=== PATIENT | female | born 1945 | race Caucasian/White ===

== ENCOUNTER 2018-03-29 14:04 | Emergency (ER) | payer MEDICARE, OTHER, SELFPAY ==
[2018-03-29 14:10] VITALS: BP 153/99; PULSE 93; RESP 20; TEMP 36.8; O2SAT 100; BMI 19.5
--- NOTE | 2018-03-29 14:38 | ED_ITS ---
HPI - Wound/Laceration <Nissa Blount PA-C - Last Filed: 03/29/18 21:41> General Chief Complaint: Wound/Laceration Stated Complaint: CUT RIGHT FOREARM Time Seen by Provider: 03/29/18 14:36 Source: patient Mode of arrival: ambulatory Limitations: no limitations History of Present Illness HPI narrative: This right-handed 9-year-old female was using a power amber at home when she states the standard caught on an uneven area and hit her right forearm. She states that it started bleeding right away. She denies any other injury. She states that she can move her wrist and fingers, tender with movement but not weak. She denies paresthesia. She states that it has been a number of years since last tetanus update. Denies any other complaints or changes to medical history since last visit Related Data Home Medications Medication Instructions Recorded Confirmed CALCIUM CITRATE/VITAMIN D3 1 tab PO QDAY #0 02/03/12 (Calcium Citrate - Vit D Caplet) lecithin #0 04/04/17 cholecalciferol (vitamin D3) #0 08/07/17 [Vitamin D3] Previous Rx's Medication Instructions Recorded potassium citrate 5 meq PO QDAY #90 tab 06/27/17 Allergies Allergy/AdvReac Type Severity Reaction Status Date / Time polymyxin B [From POLYTRIM] Allergy Severe EYE DROPS Unverified 02/11/18 12:02 - SWELLING ampicillin [AMPICILLIN] Allergy Intermediate RASH Unverified 02/11/18 12:02 Penicillins [PENICILLINS] Allergy Intermediate RASH Unverified 02/11/18 12:02 trimethoprim [From POLYTRIM] Allergy Unknown Unverified 02/11/18 12:02 Review of Systems <Nissa Blount PA-C - Last Filed: 03/29/18 21:41> Review of Systems All systems reviewed & are unremarkable except as noted in HPI and below Exam <Nissa Blount PA-C - Last Filed: 03/29/18 21:41> Narrative Exam Narrative: GENERAL APPEARANCE: Patient sitting comfortably, in no distress. LUNGS: Clear to auscultation bilaterally. HEART: Rate and rhythm regular without murmur, normal S1 and S2, no S3 or S4. DERMATOLOGIC: Right posterior mid forearm there is a 2.3 cm slightly curvilinear laceration appears to be 5-6 mm at deepest depth (irregular, deeper on radial side). I can visualize muscle but does not appear to penetrate. No visible foreign body. MUSCULOSKELETAL: Hand joints are nodular. Right hand finger strength is intact against resistance in all king with some tenderness. Full range of motion of the right wrist with tenderness at endpoints. NEUROVASCULAR: Right hand fingers are warm and pink with brisk cap refill, sensation grossly intact Initial Vital Signs Initial Vital Signs: Vital Signs Temperature 98.3 F 03/29/18 14:10 Pulse Rate 93 H 03/29/18 14:10 Respiratory Rate 20 03/29/18 14:10 Blood Pressure 153/99 H 03/29/18 14:10 Pulse Oximetry 100 03/29/18 14:10 <DO Juan Carlos Altamirano Last Filed: 03/30/18 07:24> Initial Vital Signs Initial Vital Signs: Vital Signs Temperature 98.3 F 03/29/18 14:10 Pulse Rate 93 H 03/29/18 14:10 Respiratory Rate 20 03/29/18 14:10 Blood Pressure 153/99 H 03/29/18 14:10 Pulse Oximetry 100 03/29/18 14:10 Procedures <ASHTYN Brennan Last Filed: 03/29/18 21:41> Joint Aspiration/Injection Laceration 1: Site: upper extremity Side (If applicable): right Size (cm): 2.3 Description: linear and irregular Depth: simple, single layer Local Anesthetic: lidocaine 1% and with epi Amount of anesthesia used (mL): 5 Pre-repair: wound explored, irrigated extensively and deep structures intact Skin layer closed with: nylon Size (cm): 4-0 Number of sutures: 5 Technique: simple, interrupted Course <ASHTYN Brennan Last Filed: 03/29/18 21:41> Orders Ordered: Discontinued Medications Diphtheria/Tetanus/Acell Pertussis (Adacel) 0.5 ml IM .ONCE ONE Stop: 03/29/18 14:42 Last Admin: 03/29/18 14:42 Dose: 0.5 ml Vital Signs - 8 hr 03/29/18 14:10 03/29/18 16:40 Temperature 98.3 F Pulse Rate 93 H 67 Respiratory Rate 20 16 Blood Pressure 153/99 H 154/89 H Pulse Oximetry 100 100 <DO Juan Carlos Altamirano Last Filed: 03/30/18 07:24> Orders Ordered: Discontinued Medications Diphtheria/Tetanus/Acell Pertussis (Adacel) 0.5 ml IM .ONCE ONE Stop: 03/29/18 14:42 Last Admin: 03/29/18 14:42 Dose: 0.5 ml Vital Signs - 8 hr 03/29/18 14:10 03/29/18 16:40 Temperature 98.3 F Pulse Rate 93 H 67 Respiratory Rate 20 16 Blood Pressure 153/99 H 154/89 H Pulse Oximetry 100 100 MDM - Wound/Laceration <Nissa Blount PA-C - Last Filed: 03/29/18 21:41> Imaging Data extremity: Radiologist's impression: [address] [address] XRay Report Signed Patient: Mary Beth Wong MR#: [id number] : 1945 Acct:[id number] Age/Sex: 72 / F Date of Service: 03/29/18 Loc: ED Accession Number: [id number] Procedure: XR forearm RT 2V Ordering Provider: Nissa Blount P.A-C PROCEDURE: XR FOREARM RT 2V INDICATIONS: deep laceration TECHNIQUE: 2 views of the forearm were acquired. COMPARISON: None. FINDINGS: Bones: No fractures or dislocations. No suspicious bony lesions. Soft tissues: No suspicious soft tissue calcifications or masses. IMPRESSION: No fracture or foreign body seen. Dictated by: Stephen Pineda M.D. on 03/29/2018 at 15:51 Approved by: Stephen Pineda M.D. on 03/29/2018 at 15:51 Discharge Plan Departure Patient Disposition: Home, Self-Care Clinical Impression: Forearm laceration Discharge Date/Time: 03/29/18 16:44 Interventions: ED Discharge Assessment Last Done: 03/29/18 16:40 Instructions: DI for Laceration Repair Activity Restrictions/Additional Instructions: Keep this wound clean and dry. It is okay to rinse and quickly pat dry. You can apply some Vaseline or antibiotic ointment to keep the sutures soft if you notice crusting. Return or see your PCP right away if signs of infection such as redness, drainage, or fever. They should be ready to removing in about 1 week. Prescriptions: No Action CALCIUM CITRATE/VITAMIN D3 (Calcium Citrate - Vit D Caplet) 1 tab PO QDAY Qty: 0 RF: 0 lecithin 518 MG capsule Qty: 0 RF: 0 potassium citrate 5 MEQ tablet extended release 5 meq PO QDAY Qty: 90 RF: 3 cholecalciferol (vitamin D3) [Vitamin D3] 2,000 UNIT capsule Qty: 0 RF: 0 Referrals: Esau Valdez MD [Primary Care Provider] - <Zeenat Monson DO - Last Filed: 03/30/18 07:24> Cosign ED Attending Cosignature Attestation: I was immediately available in the department for consultation. Documentation has been reviewed. I agree with assessment and plan.
[2018-03-29] MEDS: TET,DIPH,PERTUSS(ACELL),VAC/PF 0.5 ML SYRINGE IM (14:42)
--- NOTE | 2018-03-29 14:49 | DI.RAD.S_ITS ---
PROCEDURE: XR FOREARM RT 2V INDICATIONS: deep laceration TECHNIQUE: 2 views of the forearm were acquired. COMPARISON: None. FINDINGS: Bones: No fractures or dislocations. No suspicious bony lesions. Soft tissues: No suspicious soft tissue calcifications or masses. IMPRESSION: No fracture or foreign body seen. Dictated by: Stephen Pineda M.D. on 03/29/2018 at 15:51 Approved by: Stephen Pineda M.D. on 03/29/2018 at 15:51
--- NOTE | 2018-03-29 16:39 | PC.NURSE ---
placed telfa bandage on pt and wrapped with kerlix. bacitracin ointment on pt, gave pt some supplies to go home with . pt tolerated sutures procedure.
[2018-03-29 16:40] VITALS: BP 154/89; PULSE 67; RESP 16; O2SAT 100
== END 2018-03-29 16:44 | disposition home or self-care (01) ==
PROVIDERS: Emergency Provider Internal Medicine; Family Provider Family Medicine; PCP Family Medicine
DX: S51.811A Laceration without foreign body of right forearm, initial encounter (principal); W29.0XXA Contact with powered kitchen appliance, initial encounter
CPT/HCPCS: 12001; 12032; 73090; 90471; 99283; 90715

== ENCOUNTER → 2018-09-18 13:47 | Outpatient (CLI) | payer MEDICARE, OTHER, SELFPAY | PROVIDERS: Family Provider Family Medicine; PCP Student in an Organized Health Care Education/Training Program; Visit Provider Physician Assistant | DX: N30.91 Cystitis, unspecified with hematuria (principal) | CPT/HCPCS: 87086 ==

== ENCOUNTER → 2018-10-08 11:24 | Outpatient (CLI) | payer MEDICARE, OTHER, SELFPAY ==
--- NOTE | 2018-10-08 | DI.MG.S_ITS ---
BILATERAL DIGITAL SCREENING MAMMOGRAM 3D/2D WITH CAD: 10/08/2018 CLINICAL: Routine screening. Family history of breast cancer. Comparison is made to exams dated: 03/06/2017 mammogram, 12/01/2014 mammogram, and 06/21/2013 mammogram - [facility]. There are scattered fibroglandular elements in both breasts. Current study was also evaluated with a Computer Aided Detection (CAD) system. No significant masses, calcifications, or other findings are seen in either breast. There has been no significant interval change. IMPRESSION: NEGATIVE There is no mammographic evidence of malignancy. A 1 year screening mammogram is recommended. This exam was interpreted at Station ID: [id number]. NOTE: For mammograms, a report in lay terms will be sent to the patient. Approximately 15% of breast malignancies will not be visualized mammographically. In the management of a palpable breast mass, a negative mammogram must not discourage biopsy of a clinically suspicious lesion. Electronically Signed By: Gabriel eddy/connor:10/08/2018 21:04:36 letter sent: Normal Exam ACR BI-RADS Category 1: Negative 3341F
== END ==
PROVIDERS: Family Provider Family Medicine; PCP Student in an Organized Health Care Education/Training Program; Visit Provider Student in an Organized Health Care Education/Training Program
DX: Z12.31 Encounter for screening mammogram for malignant neoplasm of breast (principal); Z80.3 Family history of malignant neoplasm of breast
CPT/HCPCS: 77063; 77067

== ENCOUNTER → 2018-10-14 08:36 | Outpatient (CLI) | payer MEDICARE, OTHER, SELFPAY ==
[2018-10-14 09:32] LABS: Hematocrit 36.6 % (36-46); Hemoglobin 12.5 g/dL (12.0-16.0); Mean Corpuscular HGB Conc 34.1 % (30-36); Mean Corpuscular Hemoglobin 30.7 PG (26-34); Mean Corpuscular Volume 90.1 fL (80-100); Platelet Count 288 X10^3/uL (150-400); Red Blood Cell Count 4.06 X10^6/uL (4.0-5.2); Red Cell Distribution Width 14.1 % (11.6-14.8); White Blood Cell Count 3.5 X10^3/uL (4.5-11.0)
[2018-10-14 09:39] LABS: BUN Creatinine Ratio 26.3 (6-22); Blood Urea Nitrogen 21 mg/dL (7-17); Calcium 9.9 mg/dL (8.4-10.2); Carbon Dioxide 27 mmol/L (22-32); Chloride 106 mmol/L (98-107); Cholesterol 230 mg/dL (140-199); Estimated Glomerular Filt Rate > 60.0 mL/min (>60); Glucose 94 mg/dL (80-110); HDL Cholesterol 83 mg/dL (40-60); HEMOLYSIS < 15 (0-50); LDL Cholesterol Calculated 131 mg/dL (<100); Potassium 4.7 mmol/L (3.4-5.1); Sodium 143 mmol/L (137-145); Triglycerides 79 mg/dL (35-150)
[2018-10-14 09:55] LABS: Vitamin D 25 Hydroxy (D3) 62.2 ng/mL (30.0-100.0)
== END ==
PROVIDERS: PCP Student in an Organized Health Care Education/Training Program; Visit Provider Student in an Organized Health Care Education/Training Program
DX: E78.5 Hyperlipidemia, unspecified (principal); E78.2 Mixed hyperlipidemia; I10 Essential (primary) hypertension; E61.1 Iron deficiency; E55.9 Vitamin D deficiency, unspecified
CPT/HCPCS: 36415; 80048; 80061; 82306; 85027

== ENCOUNTER 2019-03-09 21:59 | Emergency (ER) | payer MEDICARE, OTHER, SELFPAY ==
[2019-03-09 22:42] VITALS: BP 153/87; PULSE 64; RESP 18; TEMP 36.7; O2SAT 100; BMI 19.2
[2019-03-09 23:24] LABS: Bacteria Urine Many (>30); Culture Indicated Urine Specimen Cultured; RBC Urine 1-5/HPF (0-5/HPF); Squamous Epithelial Cell Urine 0-1 /HPF (0-5/HPF); WBC Urine 10-30/HPF (0-5/HPF)
--- NOTE | 2019-03-10 00:21 | ED_ITS ---
HPI - Female Genitourinary General Chief complaint: Urogenital-Female Stated complaint: THINKS UTI Time Seen by Provider: 03/10/19 00:07 Source: patient Mode of arrival: ambulatory Limitations: no limitations History of Present Illness HPI Narrative: PATIENT IS A 73-YEAR-OLD female who presents with painful frequent urination. She started noticing some blood in her urine week however last night the symptoms got worse and definitely worse throughout the day. She has not had any fever or chills. She has some mild suprapubic pain and. Denies any fever nausea vomiting. he actually does have a prescription for Bactrim waiting for her she just was unable to pick it up. MD Complaint: UTI Related Data Home Medications Medication Instructions Recorded Confirmed CALCIUM CITRATE/VITAMIN D3 1 tab PO QDAY #0 02/03/12 01/24/19 (Calcium Citrate - Vit D Caplet) lecithin #0 04/04/17 01/24/19 cholecalciferol (vitamin D3) #0 08/07/17 01/24/19 [Vitamin D3] folic acid 400 mcg tablet 400 mcg PO DAILY 04/07/18 01/24/19 Previous Rx's Medication Instructions Recorded potassium citrate ER 5 mEq (540 5 meq PO QDAY #90 tab 10/28/18 mg) tablet,extended release Allergies Allergy/AdvReac Type Severity Reaction Status Date / Time polymyxin B [From POLYTRIM] Allergy Severe EYE DROPS Verified 03/09/19 22:45 - SWELLING ampicillin [AMPICILLIN] Allergy Intermediate RASH Verified 03/09/19 22:45 Penicillins [PENICILLINS] Allergy Intermediate RASH Verified 03/09/19 22:45 trimethoprim [From POLYTRIM] Allergy Unknown Verified 03/09/19 22:45 Review of Systems Review of Systems GENERAL: Denies chills,fever HEENT: Denies throat pain RESPIRATORY: Denies dyspnea, cough, wheezing CARDIOVASCULAR: Denies chest pain, palpitations GASTROINTESTINAL: Denies nausea, vomiting : See HPI MUSCULOSKELETAL: Denies extremity pain, injury SKIN: No rash, no laceration, no pruritus NEUROLOGIC: Denies weakness, dizziness, headache, numbness 8 point review of systems is negative except for those stated above and HPI [facility] Medical History Chronic cough (Chronic 2012) Shoulder pain (Chronic ~2003) Urinary incontinence (Chronic ~2009) Actinic keratosis (Resolved 1989) Anemia (Resolved 1963) Chicken pox (Resolved 1957) Genital warts (Resolved 1969) Hematuria (Resolved 1969) History of heavy periods (Resolved 1963) History of painful menstruation (Resolved 1963) Measles (Resolved 1954) Mumps (Resolved 1958) Nephrolithiasis (Resolved ~2011) Plantar warts (Resolved ~1984) Surgical History Anesthesia (Chronic) History of bladder suspension procedure (Resolved ~2002) History of facelift (Resolved ~2008) History of lithotripsy (Resolved ~2010) History of tonsillectomy (Resolved 1951) Status post tubal ligation (Resolved ~1978) Family History (Updated 05/15/18 @ 14:06 by Sun Geronimo) Brother Age: 76 Hypertension High cholesterol Father Stroke Grandfather Heart disease Grandmother Anemia Mother Stroke Grandfather Heart disease Grandmother Stomach cancer Social History marital status: household members: spouse and family lives independently: Yes caregiver/support person: No housing: house pets and animals: Yes education level: college occupational status: previously employed current occupational exposures/hazards: No 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 Smoking Status: Never smoker Family History Brother Age: 76 Hypertension High cholesterol Father Stroke Grandfather Heart disease Grandmother Anemia Mother Stroke Grandfather Heart disease Grandmother Stomach cancer Social History marital status: household members: spouse and family lives independently: Yes caregiver/support person: No housing: house pets and animals: Yes education level: college occupational status: previously employed current occupational exposures/hazards: No 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 HEENT: Head atraumatic,EOMI, CARDIOVASCULAR: Regular rate and rhythm without murmurs, rubs or gallops. RESPIRATORY: Breath sounds equal bilaterally, no wheezes rales or rhonchi. ABDOMEN: Soft, mild suprapubic : No CVA tenderness EXTREMITIES: Normal range of motion, no clubbing or edema. Neurovascularly in tact NEUROLOGICAL: Alert and oriented x4.Normal gait and speech. SKIN: Warm, dry, no laceration, no petechiae, no rashes or lesions. Course Orders Ordered: ED Orders 03/09/19 22:55 Urine Culture Stat Urine Microscopic Stat Discontinued Medications Trimethoprim/Sulfamethoxazole (Bactrim Ds Prepack) 1 bottle MISC SEEINSTR ONE Stop: 03/10/19 00:08 Last Admin: 03/10/19 00:27 Dose: 1 bottle Vital Signs - 8 hr 03/09/19 22:42 03/10/19 00:35 Temperature 98.0 F 99.2 F Pulse Rate 64 67 Respiratory Rate 18 18 Blood Pressure 153/87 H 144/72 H Pulse Oximetry 100 99 MDM - Female Genitourinary Lab Data Attestation: I reviewed the patient's lab results. Lab Results 03/09/19 Range/Units 22:55 Urine RBC 1-5/hpf (0-5/HPF) Urine WBC 10-30/hpf H (0-5/HPF) Ur Squamous Epith Cells 0-1 /hpf (0-5/HPF) Urine Bacteria Many (>30) H (None) Ur Culture Indicated? Specimen cultured Urine Dip Bedside Urine Glucose Negative Bedside Urine Bilirubin - Negative Bedside Urine Ketone - Negative Urine Specific Amelia 1.020 Bedside Urine Occult Blood ++ Bedside Urine pH 7.0 Bedside Urine Protein + 30 Bedside Urine Urobilinogen - Negative Bedside Urine Nitrite + Positive Bedside Urine Leukocytes +++ 500 Esterase MDM Narrative Medical decision making narrative: sHe is afebrile not tachycardic does not a ppear septic. She is given a prepack of Bactrim. Discharge Plan Departure Patient Disposition: Home Clinical Impression: Urinary tract infection Qualifiers: Urinary tract infection type: acute cystitis Hematuria presence: with hematuria Qualified Code(s): N30.01 - Acute cystitis with hematuria Discharge Date/Time: 03/10/19 00:36 Interventions: ED Discharge Assessment Last Done: 03/10/19 00:35 Instructions: DI for Urinary Tract Infection (UTI) Activity Restrictions/Additional Instructions: *You have been diagnosed with UTI *What to do: Increase fluid intake *Continue to take medications as directed Pickup prescription for Bactrim 1 tablet twice daily for 7 days I recommend stopping potassium citrate until antibiotics are done *Follow up with your primary care provider in 2-3 days *Return to ER if you should have a fever, increasing pain, inability to tolerate fluids or any new, worsening or concerning symptoms Prescriptions: No Action CALCIUM CITRATE/VITAMIN D3 (Calcium Citrate - Vit D Caplet) 1 tab PO QDAY Qty: 0 RF: 0 lecithin 518 MG capsule Qty: 0 RF: 0 cholecalciferol (vitamin D3) [Vitamin D3] 2,000 UNIT capsule Qty: 0 RF: 0 potassium citrate 5 mEq (540 mg) tablet extended release 5 meq PO QDAY Qty: 90 RF: 1 folic acid 400 mcg tablet 400 mcg PO DAILY RF: 0 Referrals: Amanuel Olmstead MD [Primary Care Provider] -
[2019-03-10] MEDS: TRIMETH/SULFA 160/800 PREPACK 1 BOTTLE MISC (00:27)
[2019-03-10 00:35] VITALS: BP 144/72; PULSE 67; RESP 18; TEMP 37.3; O2SAT 99
== END 2019-03-10 00:36 | disposition home or self-care (01) ==
PROVIDERS: Emergency Provider Emergency Medicine; Family Provider Family Medicine; PCP Student in an Organized Health Care Education/Training Program
DX: N30.01 Acute cystitis with hematuria (principal)
CPT/HCPCS: 81003; 81015; 87077; 87086; 87186; 99282; 99283

== ENCOUNTER → 2020-01-15 19:06 | Outpatient (CLI) | payer MEDICARE, OTHER, SELFPAY ==
[2020-01-15 20:22] LABS: Influenza A - CEPHEID Flu A NEGATIVE (NEGATIVE); Influenza B - CEPHEID Flu B NEGATIVE (NEGATIVE)
[2020-01-20 08:58] LABS: COVID19 Sendout DETECTED
== END ==
PROVIDERS: PCP Student in an Organized Health Care Education/Training Program; Visit Provider Nurse Practitioner
DX: B97.29 Other coronavirus as the cause of diseases classified elsewhere (principal); J22 Unspecified acute lower respiratory infection
CPT/HCPCS: 87502; 87635

== ENCOUNTER → 2020-02-17 13:29 | Outpatient (CLI) | payer MEDICARE, OTHER, SELFPAY ==
[2020-02-19 11:11] LABS: COVID19 Sendout Not Detected (Not Detected)
== END ==
PROVIDERS: PCP Student in an Organized Health Care Education/Training Program; Visit Provider Registered Nurse
DX: Z11.9 Encounter for screening for infectious and parasitic diseases, unspecified (principal)
CPT/HCPCS: 87635

== ENCOUNTER → 2020-04-07 13:17 | Outpatient (CLI) | payer MEDICARE, OTHER, SELFPAY ==
[2020-04-07 14:27] LABS: Add Manual Diff / Slide Review NO; Basophils Absolute Auto 0 /uL (0-100); Basophils Percent Auto 0.1 % (0-2); Eosinophils Absolute Auto 200 /uL (0-450); Hematocrit 34.8 % (36-46); Lymphocytes Absolute Auto 1400 /uL (1100-4500); Lymphocytes Percent Auto 35.1 % (25-40); Mean Corpuscular HGB Conc 34.6 % (30-36); Mean Corpuscular Hemoglobin 31.2 PG (26-34); Monocytes Absolute Auto 300 /uL (0-900); Monocytes Percent Auto 7.1 % (3-14); Neutrophils Absolute Auto 2200 /uL (1500-7000); Neutrophils Percent Auto 53.7 % (50-75); Platelet Count 259 X10^3/uL (150-400); Red Blood Cell Count 3.87 X10^6/uL (4.0-5.2); Red Cell Distribution Width 14.7 % (11.6-14.8); White Blood Cell Count 4.1 X10^3/uL (4.5-11.0)
[2020-04-07 14:28] LABS: Alanine Aminotransferase 17 IU/L (<35); Albumin 4.3 g/dL (3.5-5.0); Albumin Globulin Ratio 1.4 (1.0-2.8); Alkaline Phosphatase 45 U/L (38-126); Aspartate Aminotransferase 30 IU/L (14-36); Bilirubin Total 1.1 mg/dL (0.2-1.3); Blood Urea Nitrogen 17 mg/dL (7-17); Calcium 10.3 mg/dL (8.4-10.2); Carbon Dioxide 26 mmol/L (22-32); Chloride 105 mmol/L (98-107); Estimated Glomerular Filt Rate > 60.0 mL/min (>60); Glucose 98 mg/dL (80-110); HEMOLYSIS < 15 (0-50); Potassium 4.6 mmol/L (3.4-5.1); Sodium 138 mmol/L (137-145); Total Protein 7.3 g/dL (6.3-8.2)
[2020-04-07 15:10] LABS: Thyroid Stimulating Hormone 3.32 uIU/mL (0.47-4.68)
== END ==
PROVIDERS: PCP Student in an Organized Health Care Education/Training Program; Referring Provider Internal Medicine Cardiovascular Disease; Visit Provider Internal Medicine Cardiovascular Disease
DX: I11.9 Hypertensive heart disease without heart failure (principal); R00.2 Palpitations
CPT/HCPCS: 36415; 80053; 83735; 84443; 85025

== ENCOUNTER → 2020-06-22 07:54 | Outpatient (CLI) | payer MEDICARE, OTHER, SELFPAY ==
--- NOTE | 2020-06-22 | DI.ECHO.S_ITS ---
[facility] +---------+ : : [address] [place] : : : : [id number] : : : : Phone: [phone]+ Echocardiogram Report + + :Name: ALTAGRACIA GOMEZ Study Date: 06/22/2020 Height: 62 in : :[facility] Weight: 103 lb : : Gender: Female BSA: 1.4 m2 : :: 1945 Age: 75 yrs BP: 133/89 mmHg: :Reason For Study: Palpitations : :Ordering Physician: Laverne : :Marcia Travis Performed By: Rosa Hernandez : :Referring: LAVERNE TRAVIS : + + Interpretation Summary The left ventricle is normal in size and wall thickness. The ejection fraction is estimated to be 60-65%. There has been no significant change in LVEF since the previous exam. The right ventricle is normal in size and function. There is mild aortic regurgitation. Compared to the prior echo study, there has been no change in the severity of aortic regurgitation. There is moderate tricuspid regurgitation. Compared to the prior echo exam, there has been no significant change in TR severity. The right ventricular systolic pressure is estimated to be at least 24 mmHg based on an estimated right atrial pressure of 3 mm Hg. The ascending aorta is mildly enlarged. 3.8 cm in diameter. Previously it was 3.7 cm. There is mild luminal irregularity and echogenicity in the abdominal aorta, suggestive of aortic atherosclerotic disease. Procedure: A two-dimensional transthoracic echocardiogram with color flow and Doppler was performed. The study quality was technically adequate. Comparison is made with the echocardiogram of 08/01/2017. The patient was in sinus rhythm with heart rates between 60-75 bpm during the exam. Left Ventricle: The left ventricle is normal in size and wall thickness. There is no thrombus. The ejection fraction is estimated to be 60-65%. There has been no significant change since the previous exam. There are no focal wall motion abnormalities. MV E/A: 1.1 Med Peak E' Levar: 4.5 cm/sec E/E' med: 13.8. Right Ventricle: The right ventricle is normal in size and function. Atria: The left atrial size is normal. Both atria have mildly decreased in size since the prior echo exam. Right atrial size is normal. There is no Doppler evidence for an interatrial shunt. Mitral Valve: The mitral valve is normal in structure and function. There is trace mitral regurgitation. Aortic Valve: The aortic valve is trileaflet. There is no aortic valve stenosis. There is mild aortic regurgitation. Compared to the prior echo study, there has been no change in the severity of aortic regurgitation. Tricuspid Valve: Tricuspid leaflets are thickened. The right ventricular systolic pressure is estimated to be at least 24 mmHg based on an estimated right atrial pressure of 3 mm Hg. There is moderate tricuspid regurgitation. Compared to the prior echo exam, there has been no change in TR severity. Pulmonic Valve: The pulmonic valve leaflets are thin and pliable; valve motion is normal. There is trace pulmonic regurgitation. Great Vessels: The aortic root is normal size. The ascending aorta is mildly enlarged. There is mild luminal irregularity and echogenicity in the abdominal aorta, suggestive of aortic atherosclerotic disease. The IVC is of normal diameter and collapses greater than 50% with a sniff. This suggests a low right atrial pressure of 3 mm Hg. Pericardium/ Pleura There is no pericardial effusion. There is no pleural effusion. MMode/2D Measurements & Calculations LVIDd: 3.9 cm LVOT diam: 1.8 cm LVIDs: 2.6 cm Ao root diam: 3.4 cm FS: 34.1 % asc Aorta Diam: 3.8 cm EPSS: 0.29 cm Ao Arch Diam (Prox Trans): 2.3 cm IVSd: 0.84 cm LVPWd: 0.63 cm LV lopez. diameter/BSA (cm/m^2): 2.7 LV sys. diameter/BSA (cm/m^2): 1.8 LA A2 area: 14.0 cm2 RA long axis: 5.0 cm LA A4 area: 15.1 cm2 RA area: 13.9 cm2 LA length (vol): 4.8 cm RA vol: 32.9 ml LA vol: 37.7 ml RA : 22.8 ml/m2 LA vol index: 26.2 ml/m2 IVC diam: 1.4 cm RVD1 (basal): 3.1 cm TAPSE: 2.0 cm Doppler Measurements & Calculations Ao V2 max: 152.5 cm/sec LVOT Max Levar: 93.9 cm/sec Ao V2 mean: 94.3 cm/sec LV V1 max P.5 mmHg Ao max P.3 mmHg LV V1 VTI: 18.0 cm Ao mean P.3 mmHg BRIGIDA(I,D): 1.4 cm2 Ao V2 VTI: 30.9 cm BRIGIDA(V,D): 1.5 cm2 sev ratio: 0.58 BRIGIDA indexed to BSA (cm^2/m^2): 0.98 MV E max levar: 62.5 cm/sec TR max levar: 228.2 cm/sec MV A max levar: 56.7 cm/sec TR max P.8 mmHg MV E/A: 1.1 PA V2 max: 100.2 cm/sec Med Peak E' Levar: 4.5 cm/sec PA V2 mean: 65.9 cm/sec E/E' med: 13.8 PA mean P.0 mmHg Lat Peak E' Levar: 8.3 cm/sec PA pr(Accel): 24.2 mmHg E/E' lat: 7.6 E/e' average: 10.7 MV dec time: 0.19 sec SV(LVOT): 43.7 ml Reading Physician:06:05 PM
== END ==
PROVIDERS: PCP Family Medicine; Referring Provider Family Medicine; Visit Provider Internal Medicine Cardiovascular Disease
DX: I08.2 Rheumatic disorders of both aortic and tricuspid valves (principal); I77.89 Other specified disorders of arteries and arterioles; R00.2 Palpitations; R42 Dizziness and giddiness
CPT/HCPCS: 93306

== ENCOUNTER → 2020-08-10 08:18 | Outpatient (CLI) | payer MEDICARE, OTHER, SELFPAY ==
[2020-08-10 10:22] LABS: Cholesterol 229 mg/dL (140-199); HDL Cholesterol 99 mg/dL (40-60); LDL Cholesterol Calculated 115 mg/dL (<100); Triglycerides 73 mg/dL (35-150)
== END ==
PROVIDERS: PCP Family Medicine; Referring Provider Internal Medicine Cardiovascular Disease; Visit Provider Internal Medicine Cardiovascular Disease
DX: I77.810 Thoracic aortic ectasia (principal); I11.9 Hypertensive heart disease without heart failure
CPT/HCPCS: 36415; 80061

== ENCOUNTER → 2020-11-14 15:57 | Outpatient (CLI) | payer MEDICARE, OTHER, SELFPAY ==
--- NOTE | 2020-11-14 15:59 | DI.MG.S_ITS ---
BILATERAL DIGITAL SCREENING MAMMOGRAM 3D/2D WITH CAD: 11/14/2020 CLINICAL: Routine screening. Family history of breast cancer. Comparison is made to exams dated: 10/08/2018 mammogram, 03/06/2017 mammogram, and 12/01/2014 mammogram - [facility]. There are scattered fibroglandular elements in both breasts. Current study was also evaluated with a Computer Aided Detection (CAD) system. No significant masses, calcifications, or other findings are seen in either breast. There has been no significant interval change. IMPRESSION: NEGATIVE There is no mammographic evidence of malignancy. A 1 year screening mammogram is recommended. This exam was interpreted at Station ID: [id number]. NOTE: For mammograms, a report in lay terms will be sent to the patient. Approximately 15% of breast malignancies will not be visualized mammographically. In the management of a palpable breast mass, a negative mammogram must not discourage biopsy of a clinically suspicious lesion. Electronically Signed By: Toño salomon/connor:11/14/2020 16:48:25 letter sent: Normal Exam ACR BI-RADS Category 1: Negative [id number]
== END ==
PROVIDERS: PCP Family Medicine; Referring Provider Family Medicine; Visit Provider Family Medicine
DX: Z12.31 Encounter for screening mammogram for malignant neoplasm of breast (principal); Z80.3 Family history of malignant neoplasm of breast
CPT/HCPCS: 77063; 77067

== ENCOUNTER → 2020-11-22 12:50 | Outpatient (CLI) | payer MEDICARE, OTHER, SELFPAY ==
--- NOTE | 2020-11-22 12:52 | DI.RAD.S_ITS ---
PROCEDURE: XR CHEST 2V INDICATIONS: rt sided chest pain TECHNIQUE: 2 views of the chest were acquired. COMPARISON: [facility], CHEST 1 VIEW, 06/30/2017, 21:41. [facility], CHEST 2 VIEW, 11/10/2013, 17:01. FINDINGS: Surgical changes and devices: None. Lungs and pleura: Lungs are clear. No pleural effusions or pneumothorax. Mediastinum: Mediastinal contours are normal. Heart size is normal. Bones and chest wall: No suspicious bony abnormalities. Soft tissues appear unremarkable. IMPRESSION: Normal for age considering relatively light film technique on the lateral view, source of current right-sided chest pain symptoms is not seen. Dictated by: Stephen Pineda M.D. on 11/22/2020 at 14:30 Approved by: Stephen Pineda M.D. on 11/22/2020 at 14:31
[2020-11-22 13:09] LABS: Add Manual Diff / Slide Review NO; Basophils Absolute Auto 0 /uL (0-100); Basophils Percent Auto 0.3 % (0-2); Eosinophils Absolute Auto 400 /uL (0-450); Eosinophils Percent Auto 8.6 % (2-4); Hematocrit 36.9 % (36-46); Hemoglobin 12.2 g/dL (12.0-16.0); Lymphocytes Absolute Auto 1400 /uL (1100-4500); Lymphocytes Percent Auto 27.9 % (25-40); Mean Corpuscular HGB Conc 33.2 % (30-36); Mean Corpuscular Hemoglobin 30.1 PG (26-34); Mean Corpuscular Volume 90.8 fL (80-100); Monocytes Absolute Auto 300 /uL (0-900); Monocytes Percent Auto 6.8 % (3-14); Neutrophils Absolute Auto 2900 /uL (1500-7000); Neutrophils Percent Auto 56.4 % (50-75); Platelet Count 273 X10^3/uL (150-400); Red Blood Cell Count 4.06 X10^6/uL (4.0-5.2); Red Cell Distribution Width 13.9 % (11.6-14.8); White Blood Cell Count 5.1 X10^3/uL (4.5-11.0)
[2020-11-22 13:13] LABS: INR 0.9 (0.9-1.3); Prothrombin Time 10.9 SECONDS (10.1-12.7)
[2020-11-22 13:16] LABS: D Dimer < 200 ng/mL (<230)
[2020-11-22 13:18] LABS: Alanine Aminotransferase 16 IU/L (<35); Albumin 4.3 g/dL (3.5-5.0); Albumin Globulin Ratio 1.4 (1.0-2.8); Alkaline Phosphatase 52 U/L (38-126); Aspartate Aminotransferase 26 IU/L (14-36); BUN Creatinine Ratio 21.3 (6-22); Bilirubin Total 0.9 mg/dL (0.2-1.3); Blood Urea Nitrogen 16 mg/dL (7-17); Calcium 9.5 mg/dL (8.4-10.2); Carbon Dioxide 28 mmol/L (22-32); Chloride 106 mmol/L (98-107); Cholesterol 247 mg/dL (140-199); Creatine Kinase 59 U/L (30-135); Estimated Glomerular Filt Rate > 60.0 mL/min (>60); Glucose 102 mg/dL (80-110); HDL Cholesterol 103 mg/dL (40-60); HEMOLYSIS < 15 (0-50); LDL Cholesterol Calculated 122 mg/dL (<100); Sodium 139 mmol/L (137-145); Total Protein 7.3 g/dL (6.3-8.2); Triglycerides 108 mg/dL (35-150)
[2020-11-22 13:30] LABS: Troponin I < 0.012 ng/mL (0.01-0.034)
[2020-11-22 13:53] LABS: Ferritin 28 ng/mL (11-264)
== END ==
PROVIDERS: PCP Family Medicine; Referring Provider Family Medicine; Visit Provider Family Medicine
DX: R07.81 Pleurodynia (principal); R07.9 Chest pain, unspecified; D64.9 Anemia, unspecified; E78.5 Hyperlipidemia, unspecified
CPT/HCPCS: 36415; 71046; 80053; 80061; 82550; 82728; 84484; 85025; 85379; 85610

== ENCOUNTER 2020-11-22 14:36 | Observation (INO) | payer MEDICARE, OTHER, SELFPAY ==
[2020-11-22] VITALS (9 sets, daily range): BP systolic 110–185; BP diastolic 69–96; PULSE 68–87; RESP 16–51; TEMP 36.9–37.2; O2SAT 96–100; BMI 21.9
--- NOTE | 2020-11-22 14:44 | DI.CT.S_ITS ---
PROCEDURE: CT ANGIO CHEST PE PROTOCOL INDICATIONS: R upper chest pain TECHNIQUE: After the administration of intravenous contrast, 2 mm thick sections acquired from the pulmonary apices to the posterior costophrenic angles. 3-dimensional maximum intensity projection (MIP) coronal and sagittal reformats were then acquired through the thorax. For radiation dose reduction, the following was used: automated exposure control, adjustment of mA and/or kV according to patient size. COMPARISON: None. FINDINGS: Image quality: Excellent. Pulmonary arteries: Pulmonary arteries are normal in size, and demonstrate no intraluminal filling defects to suggest central pulmonary embolism. Lungs and pleura: Lungs are clear except for a small degree of what appears to be linear atelectasis at the anterior border of the major fissure, right anterolateral lower lobe. This is adjacent to a thin anterior pneumothorax, measuring only 1.3-1.5 cm in maximal thickness that is at the most anterior border of the low hemithorax on the right and does not extend towards the right lung apex. No blebs, or new masses are seen.. No pleural effusions or pneumothorax. Central and peripheral airways are patent. Mediastinum: Heart size is normal, without pericardial effusion. No mediastinal or hilar adenopathy. Thoracic aorta is normal in caliber and enhancement. Esophagus is normal in caliber, without hiatal hernia. Bones and chest wall: No suspicious bony lesions. Ribs and thoracic spine appear intact throughout. Thyroid gland appears normal where well seen.. No axillary or supraclavicular adenopathy. Abdomen: Visualized upper abdominal solid organs appear normal in the early arterial phase of enhancement. IMPRESSION: Spontaneous small right anterior pneumothorax with adjacent atelectasis is present seen only at the right lower lung, measuring only 1.5 cm in maximal thickness without significant mass effect. Etiology is uncertain. No trauma reported by the emergency room physician. No pulmonary embolus present. These findings were immediately called to and discussed with Dr. Silva of the emergency room staff caring for the patient. Dictated by: Stephen Pineda M.D. on 11/22/2020 at 15:50 Approved by: Stephen Pineda M.D. on 11/22/2020 at 15:56
--- NOTE | 2020-11-22 14:50 | ED.GENADULT ---
HPI - General Adult General Chief complaint: Chest Pain Stated complaint: right upper chest discomfort x1 day Time Seen by Provider: 11/22/20 14:41 Source: patient Mode of arrival: Ambulatory Limitations: no limitations History of Present Illness HPI narrative: Patient is a 75-year-old female here for evaluation of right upper chest discomfort. Patient states that the symptoms started this morning when she woke up. It was a sharp and achy discomfort. She was also belching this morning was did not change any of her symptoms. She thought that potentially was worse by touching it although it is definitely worse by taking a deep breath. She went to her primary doctor earlier today who joseph labs which were unremarkable. She states that since she was sent home from her primary doctor's office the symptoms seem to get worse. She did take 2 extra-strength Tylenol prior to arrival and her symptoms seemed to have improved somewhat. Related Data Home Medications Medication Instructions Recorded Confirmed CALCIUM CITRATE/VITAMIN D3 1 tab PO QDAY #0 02/03/12 11/22/20 (Calcium Citrate - Vit D Caplet) lecithin #0 04/04/17 11/22/20 cholecalciferol (vitamin D3) #0 08/07/17 11/22/20 [Vitamin D3] folic acid 400 mcg tablet 400 mcg PO DAILY 04/07/18 11/22/20 Previous Rx's Medication Instructions Recorded potassium citrate 5 mEq (540 mg) See Rx Instructions .ROUTE 05/05/20 tablet,extended release .COMPLEX #90 tab Allergies Allergy/AdvReac Type Severity Reaction Status Date / Time polymyxin B [From POLYTRIM] Allergy Severe EYE DROPS Verified 11/22/20 12:18 - SWELLING ampicillin [AMPICILLIN] Allergy Intermediate RASH Verified 11/22/20 12:18 Penicillins [PENICILLINS] Allergy Intermediate RASH Verified 11/22/20 12:18 trimethoprim [From POLYTRIM] Allergy Unknown Verified 11/22/20 12:18 Bactrim (trimethoprim) AdvReac Intermediate red,raised Uncoded 11/22/20 12:18 , very itchy rash Review of Systems Constitutional Constitutional: Denies fever(s) Cardiovascular Cardiovascular: Reports chest pain Respiratory Respiratory: Reports pain on inspiration Gastrointestinal Gastrointestinal: Denies abdominal pain, Denies nausea and Denies vomiting Genitourinary Genitourinary: Denies dysuria Genitourinary: Denies dysuria Musculoskeletal Musculoskeletal: Denies arthralgias and Denies myalgias Integumentary/Breasts Skin/Breast: Denies lesions and Denies rash Neurologic Neurologic: Denies behavioral changes Psychiatric Psychiatric: Denies behavioral changes Hematologic/Lymphatic Hematologic/Lymphatic: Denies easy bleeding and Denies easy bruising Patient History Medical History Actinic keratosis (1989) Anemia (1963) Chicken pox (1957) Chronic cough (2012) Genital warts (1969) Hematuria (1969) History of heavy periods (1963) History of painful menstruation (1963) Measles (1954) Mumps (1958) Nephrolithiasis (~2011) Plantar warts (~1984) Shoulder pain (~2003) Urinary incontinence (~2009) Surgical History Anesthesia History of bladder suspension procedure (~2002) History of facelift (~2008) History of lithotripsy (~2010) History of tonsillectomy (1951) Status post tubal ligation (~1978) Family History Brother Age: 78 Hypertension High cholesterol Father Stroke Grandfather Heart disease Grandmother Anemia Mother Stroke Grandfather Heart disease Grandmother Stomach cancer Social History marital status: household members: spouse and family lives independently: Yes caregiver/support person: No housing: house pets and animals: Yes education level: college occupational status: previously employed current occupational exposures/hazards: No Previous occupational history: instructor correspondence school Smoking Status: Never smoker alcohol intake: current (1-2 A DAY ) substance use type: marijuana Smoking Status: Never smoker alcohol intake frequency: a few times a week Substance Use Type: does not use Exam Initial Vital Signs Initial Vital Signs: Vital Signs Pulse Rate 84 11/22/20 14:44 Respiratory Rate 20 11/22/20 14:44 Blood Pressure 185/96 H 11/22/20 14:44 Pulse Oximetry 96 11/22/20 14:44 Const General: cooperative, comfortable and well developed Limitations: mental status not altered HENMT Head: normal to inspection and normocephalic Chest Chest: No crepitus and No tenderness Resp Effort & Inspection: normal respiratory effort Auscultation: clear to auscultation bilaterally Cardio Rate: regular rate Rhythm: regular rhythm Skin Lesions: no lesions Rashes: no rashes Neuro General: patient alert and patient awake Cognition: normal cognition Speech: speech normal Extrem General: capillary refill normal Psych Appearance: grossly normal and well kempt Course Orders Ordered: ED Orders 11/22/20 14:43 Troponin & CK Cardiac Panel Stat EKG-12 Lead Stat 11/22/20 14:44 CT angio chest PE protocol Stat 11/22/20 17:13 Consult to General Surgery Stat 11/22/20 17:20 COVID19 Stat Acetaminophen (Acetaminophen 325 Mg Tablet) 650 mg PO Q6HR PRN PRN Reason: Fever/Mild Pain (1-3) Calcium Carbonate (Calcium Carbonate 500 Mg Tab) 1,000 mg PO Q4HR PRN PRN Reason: Dyspepsia Ibuprofen (Ibuprofen 600 Mg Tablet) 600 mg PO Q6HR PRN PRN Reason: Fever/Mild Pain (1-3) Naloxone HCl (Naloxone 0.4 Mg/Ml Vial) 0.2 mg IV Q2MIN PRN PRN Reason: Opiate Reversal Vital Signs Vital signs: Vital Signs - 8 hr 11/22/20 14:44 11/22/20 14:46 11/22/20 15:00 Pulse Rate 84 87 74 Respiratory Rate 20 23 51 H Blood Pressure 185/96 H 153/80 H Pulse Oximetry 96 100 100 11/22/20 16:23 11/22/20 16:24 Pulse Rate 83 74 Respiratory Rate 16 Blood Pressure 140/76 140/76 Pulse Oximetry 99 98 Medical Decision Making Lab Data Lab results reviewed: Yes I reviewed the patient's lab results. Labs: Lab Results 11/22/20 Range/Units 14:43 Total Creatine Kinase 71 (30-135) U/L CK-MB (CK-2) TNP CK-MB (CK-2) Rel Index TNP Troponin I < 0.012 (0.01-0.034) ng/mL Imaging Data CT scan - chest: Radiologist's Impression: [address] [id number] Scan ReportSigned Patient: Mary Beth Wong AMR#: [id number]: 1945cct:[id number]/Sex: 75 / FDate of Service: 11/22/20Loc: EDAccession Number: [id number] Procedure: CT angio chest PE protocol Ordering Provider: Danis Silva D.O. PROCEDURE: CT ANGIO CHEST PE PROTOCOL INDICATIONS: R upper chest pain TECHNIQUE: After the administration of intravenous contrast, 2 mm thick sections acquired from the pulmonary apices to the posterior costophrenic angles. 3-dimensional maximum intensity projection (MIP) coronal and sagittal reformats were then acquired through the thorax. For radiation dose reduction, the following was used: automated exposure control, adjustment of mA and/or kV according to patient size. COMPARISON: None. FINDINGS: Image quality: Excellent. Pulmonary arteries: Pulmonary arteries are normal in size, and demonstrate no intraluminal filling defects to suggest central pulmonary embolism. Lungs and pleura: Lungs are clear except for a small degree of what appears to be linear atelectasis at the anterior border of the major fissure, right anterolateral lower lobe. This is adjacent to a thin anterior pneumothorax, measuring only 1.3-1.5 cm in maximal thickness that is at the most anterior border of the low hemithorax on the right and does not extend towards the right lung apex. No blebs, or new masses are seen.. No pleural effusions or pneumothorax. Central and peripheral airways are patent. Mediastinum: Heart size is normal, without pericardial effusion. No mediastinal or hilar adenopathy. Thoracic aorta is normal in caliber and enhancement. Esophagus is normal in caliber, without hiatal hernia. Bones and chest wall: No suspicious bony lesions. Ribs and thoracic spine appear intact throughout. Thyroid gland appears normal where well seen.. No axillary or supraclavicular adenopathy. Abdomen: Visualized upper abdominal solid organs appear normal in the early arterial phase of enhancement. IMPRESSION: Spontaneous small right anterior pneumothorax with adjacent atelectasis is present seen only at the right lower lung, measuring only 1.5 cm in maximal thickness without significant mass effect. Etiology is uncertain. No trauma reported by the emergency room physician. No pulmonary embolus present. These findings were immediately called to and discussed with Dr. Silva of the emergency room staff caring for the patient. Dictated by: Stephen Pineda M.D. on 11/22/2020 at 15:50 Approved by: Stephen Pineda M.D. on 11/22/2020 at 15:56 ECG Data Attestation: I personally reviewed and interpreted this ECG as follows: Prior ECG tracings: not available for review Interpretation: Sinus rhythm Ventricular rate 82 Normal axis Normal QRS Normal QTC No ST T wave changes MDM Narrative Medical decision making narrative: Patient does have a right-sided pneumothorax. It is less than 20% per my evaluation. She is not hypoxic. Not tachypneic. He was not seen on a chest x-ray earlier today. Discussed the case with Dr. Serrano on-call for General surgery. Will hold on a chest tube for now however will admit for further evaluation and repeat imaging in the morning. A consult was placed for General surgery. He asked the patient be admitted to the medicine service. I then discussed the case with Dr. Dixon who is patient's primary doctor. Will admit for further evaluation. I did discuss this with the patient and her at bedside. They expressed understanding and agreement. Discharge Plan Departure Patient Disposition: Admitted as Observation Clinical Impression: Pneumothorax Admit Date/Time: 11/22/20 17:16 Admit Provider: Alan Dixon
[2020-11-22 15:26] LABS: Creatine Kinase 71 U/L (30-135)
[2020-11-22 15:38] LABS: Troponin I < 0.012 ng/mL (0.01-0.034)
[2020-11-22 17:53] LABS: COVID19 -Nasal RAPID Negative (Negative)
--- NOTE | 2020-11-22 17:59 | P.HP_ITS ---
History of Present Illness History of Present Illness Date Patient Seen: 11/22/20 Chief complaint: right upper chest discomfort x1 day Narrative: 75-year-old female with a history of hyperlipidemia intermittent tachycardia presents with sudden onset of right-sided chest pain. Patient stat es she woke up in the middle night and had right-sided chest pain. He was an upper rib area. Pain was mild to moderate surpass stabbing in nature radiating toward her back. She woke up in the morning and the pain was mild to moderate. Throughout the day mildly increased but was kind of stable. She called my office she presented. She has the pain was not associated with shortness of breath. She has had no fevers or chills. She does cough. Patient has no smoking history no chronic lung disease history history of tumors or cancer. The pain was not worsened by movement or activity. Patient did not notice irregular heartbeat or fast heartbeat. She has not had any recent abdominal pain heartburn or reflux. She does have her gallbladder in. Patient has never had pain like this before. She has not had any recent travel. No recent injuries or falls. Due to her pain and discomfort. She was sent to the hospital with a chest x-ray she had laboratory test including a D-dimer cardiac enzyme PT and INR. Patient's laboratory tests checks x-ray results were all essentially unremarkable. Patient call back in our later with increasing chest pain and discomfort. That point was concerned about in inter lung pathology and thought she needed a CT scan due to the emergent nature of that CT scan she was sent to the emergency department and I consulted with Dr. López In emergency department patient had normal vitals normal blood pressure normal oxygen. CT scan was done which showed a small basilar pneumothorax in the right lung. This was not visualized on the chest x-ray. Due to increasing pain and discomfort 10 concern for increase in size over time. Patient was admitted the hospital for further evaluation and management. Patient History Medical History Actinic keratosis (1989) Anemia (1963) Chicken pox (1957) Chronic cough (2012) Genital warts (1969) Hematuria (1969) History of heavy periods (1963) History of painful menstruation (1963) Measles (1954) Mumps (1958) Nephrolithiasis (~2011) Plantar warts (~1984) Shoulder pain (~2003) Urinary incontinence (~2009) Surgical History Anesthesia History of bladder suspension procedure (~2002) History of facelift (~2008) History of lithotripsy (~2010) History of tonsillectomy (1951) Status post tubal ligation (~1978) Family & Social History Family History Brother Age: 78 Hypertension High cholesterol Father Stroke Grandfather Heart disease Grandmother Anemia Mother Stroke Grandfather Heart disease Grandmother Stomach cancer Social History: household members spouse,family lives independently Yes caregiver/support person No Tobacco & Substance use: Smoking Status Never smoker alcohol intake current alcohol intake frequency a few times a week Substance Use Type does not use Meds Home Medications and Allergies Home Medications Medication Instructions Recorded Confirmed Type CALCIUM CITRATE/VITAMIN D3 1 tab PO QDAY #0 02/03/12 11/22/20 History (Calcium Citrate - Vit D Caplet) lecithin 518 mg PO DAILY #0 04/04/17 11/22/20 History cholecalciferol (vitamin D3) 2,000 unit PO DAILY #0 08/07/17 11/22/20 History [Vitamin D3] folic acid 400 mcg tablet 400 mcg PO DAILY 04/07/18 11/22/20 History potassium citrate 5 mEq (540 mg) See Rx Instructions .ROUTE 05/05/20 11/22/20 Rx tablet,extended release .COMPLEX #90 tab Allergies Allergy/AdvReac Type Severity Reaction Status Date / Time polymyxin B [From POLYTRIM] Allergy Severe EYE DROPS Verified 11/22/20 12:18 - SWELLING ampicillin [AMPICILLIN] Allergy Intermediate RASH Verified 11/22/20 12:18 Penicillins [PENICILLINS] Allergy Intermediate RASH Verified 11/22/20 12:18 trimethoprim [From POLYTRIM] Allergy Unknown Verified 11/22/20 12:18 Bactrim (trimethoprim) AdvReac Intermediate red,raised Uncoded 11/22/20 12:18 , very itchy rash Exam Vital Signs (past 8 hours): - 11/22/20 14:44 11/22/20 14:46 11/22/20 15:00 Pulse Rate 84 87 74 Respiratory Rate 20 23 51 H Blood Pressure 185/96 H 153/80 H Pulse Oximetry 96 100 100 11/22/20 16:23 11/22/20 16:24 Pulse Rate 83 74 Respiratory Rate 16 Blood Pressure 140/76 140/76 Pulse Oximetry 99 98 Oxygen Delivery Method Room Air Narrative Exam Narrative: Gen.: Alert good historian no apparent distress no respiratory distress HEENT: NCAT PERRLA tympanic membranes are clear nares are patent oral mucosa is moist no tonsillar hypertrophy neck is supple without lymphadenopathy no thyroid enlargement. Cardio: S1-S2 regular rate and rhythm no murmurs appreciated. Respiratory: Lungs are clear to auscultation no wheezes or crackles normal respiratory effort. No tenderness to the palpation. No signs of increased work of breathing. Abdomen: Soft nontender no rebound or guarding no liver spleen enlargement no appreciable hernias Extremities: Full range of motion no appreciable weakness no cyanosis or edema. Neurologic: Grossly intact. Objective Labs Labs: Laboratory Results - last 24 hr 11/22/20 11/22/20 14:43 17:20 Total Creatine Kinase 71 CK-MB (CK-2) TNP CK-MB (CK-2) Rel Index TNP Troponin I < 0.012 SARS-CoV-2 (PCR) Negative Assessment & Plan Assessment & Plan narrative: Spontaneous pneumothorax. 75-year-old female with spontaneous pneumothorax of her right lung. Small. Patient will be admitted the hospital for further evaluation and management. She will have a repeat chest x-ray in 12 hours. She will be placed on 2 L of nasal cannula oxygen see if this will spontaneously resolve on its own. She will be monitor closely for increased respiratory distress or hypoxia or signs of tension. Will have surgery on-call if needed if patient needed emergency thoracentesis for resolution. Patient has no significant past medical history of lung pathology. Do not see any significant lung pathology on CT scan other than pneumothorax. Patient has good pain relief with Tylenol. Prophylaxis. Patient has SCDs for DVT prophylaxis we will hold off on Lovenox due to potential possibility of surgical procedure. Code status patient is a full code.
--- NOTE | 2020-11-22 18:11 | DI.RAD.S_ITS ---
PROCEDURE: XR CHEST 2V INDICATIONS: Pneumothorax right TECHNIQUE: 2 views of the chest were acquired. COMPARISON: [facility], CR, CHEST 1 VIEW, 06/30/2017, 21:41. [facility], CT, CT ANGIO CHEST PE PROTOCOL, 11/22/2020, 15:09. [facility], CR, XR CHEST 2V, 11/22/2020, 14:12. FINDINGS: Surgical changes and devices: None. Lungs and pleura: Lungs are clear. Stable appearance of small right apical pneumothorax compared to prior chest and CT scan dated 11/22/2020. Mediastinum: Mediastinal contours are normal. Heart size is normal. Bones and chest wall: No suspicious bony abnormalities. Scoliosis. Soft tissues appear unremarkable. IMPRESSION: Stable small right apical pneumothorax. Dictated by: Franc MORENO Interpreted: Ashish Dalal MD on 11/23/2020 at 9:28 Approved by: Ashish Dalal M.D. on 11/23/2020 at 11:01
[2020-11-22] MEDS: ACETAMINOPHEN 325 MG TABLET 650 MG PO (18:22)
[2020-11-22] MEDS: IBUPROFEN 600 MG TABLET PO (20:23)
[2020-11-23 05:34] VITALS: BP 120/68; PULSE 61; RESP 18; TEMP 36.4; O2SAT 100
[2020-11-23] MEDS: IBUPROFEN 600 MG TABLET PO (05:35)
[2020-11-23 07:25] VITALS: PULSE 75; RESP 14; O2SAT 99
[2020-11-23 07:45] VITALS: O2SAT 100
--- NOTE | 2020-11-23 07:48 | PM.PN.1 ---
Subjective Subjective Date Patient Seen: 11/23/20 Time Patient Seen: 07:48 Interval history: Patient seen and evaluated. Did well last night. Repeated chest x-ray last evening just to make sure pneumothorax was not getting larger. Chest x-ray was reviewed. Appears stable at this time. Patient had limited amount of sleep. She is ambulatory. Oxygen levels have been good no significant hypoxia tachycardia. Pain being well controlled with Tylenol and ibuprofen. Patient unsure how this happened. CT scan reviewed no Cancer tumor. 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 She says maybe she was singing quite loud at 1 point maybe this happened although the pain was not in relationship to this. Nonetheless she is eating urination bowel movements are stable. Exam Vital Signs (past 8 hours): - 11/23/20 05:34 11/23/20 07:25 Temperature 97.6 F Pulse Rate 61 75 Respiratory Rate 18 14 Blood Pressure 120/68 Pulse Oximetry 100 99 Oxygen Delivery Method Nasal Cannula Oxygen Flow Rate 2 Narrative Exam Narrative: Gen.: Alert and oriented x3 no apparent distress. HEENT: NCAT PERRLA tympanic membranes are clear nares are patent oral mucosa is moist no tonsillar hypertrophy neck is supple without lymphadenopathy no thyroid enlargement. Cardio: S1-S2 regular rate and rhythm no murmurs appreciated. Respiratory: Lungs are clear to auscultation no wheezes or crackles normal respiratory effort. Abdomen: Soft nontender no rebound or guarding no liver spleen enlargement no appreciable hernias Extremities: Full range of motion no appreciable weakness no cyanosis or edema. Neurologic: Grossly intact. Objective Labs Labs: Laboratory Results - last 24 hr 11/22/20 11/22/20 14:43 17:20 Total Creatine Kinase 71 CK-MB (CK-2) TNP CK-MB (CK-2) Rel Index TNP Troponin I < 0.012 SARS-CoV-2 (PCR) Negative COUNTS INCLUDE [facility] BEDS AT [facility] Medical History Actinic keratosis (1989) Anemia (1963) Chicken pox (1957) Chronic cough (2012) Genital warts (1969) Hematuria (1969) History of heavy periods (1963) History of painful menstruation (1963) Measles (1954) Mumps (1958) Nephrolithiasis (~2011) Plantar warts (~1984) Shoulder pain (~2003) Urinary incontinence (~2009) Surgical History Anesthesia History of bladder suspension procedure (~2002) History of facelift (~2008) History of lithotripsy (~2010) History of tonsillectomy (195) Status post tubal ligation (~1978) Family History Brother Age: 78 Hypertension High cholesterol Father Stroke Grandfather Heart disease Grandmother Anemia Mother Stroke Grandfather Heart disease Grandmother Stomach cancer Social History marital status: household members: spouse and family lives independently: Yes caregiver/support person: No housing: house pets and animals: Yes education level: college occupational status: previously employed current occupational exposures/hazards: No Previous occupational history: before school Smoking Status: Never smoker alcohol intake: current substance use type: marijuana Assessment & Plan Assessment & Plan narrative: Pneumothorax. Patient's chest x-ray last evening shows no significant expansion. Hard to visualize pneumothorax. He is on 2 L nasal cannula. Oxygen status is stable vital signs are stable pain well controlled with Tylenol. She also took a little bit of Motrin she is eating ambulating well. Continue with nasal cannula oxygen throughout the morning. Repeat chest x-ray about lunch time. If chest x-ray stable at that point. We will go ahead and proceed with discharging the patient. And following as an outpatient. DVT prophylaxis with SCDs Disposition and plan if stable pneumothorax discharged later today.
[2020-11-23 08:30] VITALS: BP 119/79; PULSE 66; RESP 16; TEMP 36.4; O2SAT 100
--- NOTE | 2020-11-23 10:35 | CM.DANOTE ---
DCP: Case received, EMR reviewed and met with patient. , Esau, was in the room with patient. Introduces self and role. Was able to obtain information from patient regarding her baseline activity status prior to hospitalization. DCP assessment completed with information currently available. Patient is a 75 year old female who admitted yesterday afternoon to the care of the hospitalist team. PCP: Dr. Dixon. Payer: confirmed: Medicare/ Patient came to the hospital via private vehicle secondary to having right upper chest discomfort. She was diagnosed with right sided thin anterior pneumothorax. Met with patient in her room, was at bedside. She is alert and oriented, and independent at baseline. Stated, I don't know how I could have gotten this, I haven't been doing anything strenous. Patient resides here in [place] with her spouse. P: DCP to continue to follow. Patient can potentially be discharged home today, but she may be having another CT first. Rebecca Jeffrey RN/Refinery Operator
--- NOTE | 2020-11-23 11:31 | DI.RAD.S_ITS ---
PROCEDURE: XR CHEST 2V INDICATIONS: Pneumothorax right TECHNIQUE: 2 views of the chest were acquired. COMPARISON: [facility], CT, CT ANGIO CHEST PE PROTOCOL, 11/22/2020, 15:09. [facility], CR, XR CHEST 2V, 11/22/2020, 18:44. FINDINGS: Surgical changes and devices: None. Lungs and pleura: Small right apical pneumothorax appears unchanged. No findings to suggest developing tension. Lungs are clear. No pleural effusions or pneumothorax. Mediastinum: Mediastinal contours are normal. Heart size is normal. Bones and chest wall: No suspicious bony abnormalities. [id number] scoliosis. Soft tissues appear unremarkable. IMPRESSION: Stable right apical pneumothorax. Dictated by: Michelle Bruce M.D. on 11/23/2020 at 11:57 Approved by: Michelle Bruce M.D. on 11/23/2020 at 12:00
[2020-11-23] MEDS: ACETAMINOPHEN 325 MG TABLET 650 MG PO (11:35)
[2020-11-23 11:54] VITALS: BP 118/76; PULSE 67; RESP 16; TEMP 36.7; O2SAT 99
--- NOTE | 2020-11-23 14:40 | PC.NURSE ---
Discharge: Pt feels ready to d/c home. Dr. Dixon here and gave d/c instructions. Spouse present at that time. Reviewed d/c packet. Questions answered. Pt will make her own follow up appointment. Pt d/c home via auto w/spouse.
--- NOTE | 2020-11-24 08:22 | P.DS_ITS ---
History of Present Illness History of Present Illness Narrative: 75-year-old female with a history of hyperlipidemia intermittent tachycardia presents with sudden onset of right-sided chest pain. Patient states she woke up in the middle night and had right-sided chest pain. He was an upper rib area. Pain was mild to moderate surpass stabbing in nature radiating toward her back. She woke up in the morning and the pain was mild to moderate. Throughout the day mildly increased but was kind of stable. She c alled my office she presented. She has the pain was not associated with shortness of breath. She has had no fevers or chills. She does cough. Patient has no smoking history no chronic lung disease history history of tumors or cancer. The pain was not worsened by movement or activity. Patient did not notice irregular heartbeat or fast heartbeat. She has not had any recent abdominal pain heartburn or reflux. She does have her gallbladder in. Patient has never had pain like this before. She has not had any recent travel. No recent injuries or falls. Due to her pain and discomfort. She was sent to the hospital with a chest x-ray she had laboratory test including a D-dimer cardiac enzyme PT and INR. Patient's laboratory tests checks x-ray results were all essentially unremarkable. Patient call back in our later with increasing chest pain and discomfort. That point was concerned about in inter lung pathology and thought she needed a CT scan due to the emergent nature of that CT scan she was sent to the emergency department and I consulted with Dr. López In emergency department patient had normal vitals normal blood pressure normal oxygen. CT scan was done which showed a small basilar pneumothorax in the right lung. This was not visualized on the chest x-ray. Due to increasing pain and discomfort 10 concern for increase in size over time. Patient was admitted the hospital for further evaluation and management. Discharge Providers Provider Date of admission: 11/22/20 17:16 Discharge Date: 11/23/20 Primary care physician: Alan Dixon MD Consults: 11/22/20 17:13 Consult to General Surgery Stat Comment: Consulting Provider: Kiran Serrano Reason for consultation: Pneumothorax Has provider been notified: Yes Discharge provider: Alan Dixon MD Summary Hospital Course Discharge Diagnosis: Pneumothorax Hospital Course: Patient was admitted the hospital for pneumothorax. With significant right-sided pleuritic chest pain. Patient was admitted to further evaluate her pneumothorax and monitor for signs of expansion. Patient was placed on nasal cannula oxygen. Given Tylenol and Motrin. Patient had repeat chest x-ray evaluation over the ensuing 24 hours. There was stable size of her pneumothorax and no signs of tension. During her hospital stay patient had SCDs her vital signs were stable she was eating well. Her pain was well controlled. The time of discharge she was able to tolerate room air oxygen. Vital signs were stable. Ready to be discharged. Exam Vital Signs (past 8 hours): Oxygen Delivery Method Nasal Cannula Oxygen Flow Rate 2 Narrative Exam Narrative: Gen.: Alert and oriented x3 no apparent distress. HEENT: NCAT PERRLA tympanic membranes are clear nares are patent oral mucosa is moist no tonsillar hypertrophy neck is supple without lymphadenopathy no thyroid enlargement. Cardio: S1-S2 regular rate and rhythm no murmurs appreciated. Respiratory: Lungs are clear to auscultation no wheezes or crackles normal respiratory effort. Abdomen: Soft nontender no rebound or guarding no liver spleen enlargement no appreciable hernias Extremities: Full range of motion no appreciable weakness no cyanosis or edema. Neurologic: Grossly intact. [facility] Medical History (Updated 11/24/20 @ 15:01 by TERESA Larry) Actinic keratosis (1989) Anemia (1963) Chicken pox (1957) Chronic cough (2012) Genital warts (1969) Hematuria (1969) History of heavy periods (1963) History of painful menstruation (1963) Measles (1954) Mumps (1958) Nephrolithiasis (~2011) Plantar warts (~1984) Shoulder pain (~2003) Urinary incontinence (~2009) Surgical History Anesthesia History of bladder suspension procedure (~2002) History of facelift (~2008) History of lithotripsy (~2010) History of tonsillectomy (1951) Status post tubal ligation (~1978) Family History Brother Age: 78 Hypertension High cholesterol Father Stroke Grandfather Heart disease Grandmother Anemia Mother Stroke Grandfather Heart disease Grandmother Stomach cancer Social History marital status: household members: spouse and family lives independently: Yes caregiver/support person: No housing: house pets and animals: Yes education level: college occupational status: previously employed current occupational exposures/hazards: No Previous occupational history: school curriculum developer Smoking Status: Never smoker alcohol intake: current substance use type: marijuana
== END 2020-11-23 14:30 | disposition home or self-care (01) ==
LOC: ED 17:14 → AC 17:20
PROVIDERS: Admitting Provider Family Medicine; Emergency Provider Emergency Medicine; PCP Family Medicine; Referring Provider Emergency Medicine; Visit Provider Family Medicine
DX: R07.81 Pleurodynia (principal); R07.9 Chest pain, unspecified; Z20.822 Contact with and (suspected) exposure to COVID-19
CPT/HCPCS: 36415; 71046; 71275; 80053; 80061; 82550; 82728; 84484; 85025; 85379; 85610; 87635; 93005; 93010; 94762; 99223; 99238; 99284; C9803; G0378; Q9967

== ENCOUNTER 2020-11-24 11:48 | Emergency (ER) | payer MEDICARE, OTHER, SELFPAY ==
[2020-11-22 20:03] VITALS: BMI 21.9
[2020-11-24] VITALS (10 sets, daily range): BP systolic 141–187; BP diastolic 81–90; PULSE 72–87; RESP 15–22; TEMP 36.9; O2SAT 98–100; BMI 18.8
--- NOTE | 2020-11-24 11:59 | DI.RAD.S_ITS ---
PROCEDURE: XR CHEST 1V INDICATIONS: hx pneumo, worsening pain TECHNIQUE: One view of the chest was acquired. COMPARISON: [facility], CR, XR CHEST 2V, 11/23/2020, 12:14. FINDINGS: Surgical changes and devices: None. Lungs and pleura: Lungs are clear. Small apically right pneumothorax slightly decreased in size compared to November 23, 2020. Mediastinum: Mediastinal contours appear normal. Heart size is normal. Bones and chest wall: No suspicious bony lesions. S-shaped thoracolumbar spine scoliosis Overlying soft tissues appear unremarkable. IMPRESSION: Small apical right pneumothorax decreased in size compared to November 23, 2020. Dictated by: Donna Hubbard MD, PhD on 11/24/2020 at 11:44 Approved by: Donna Hubbard MD, PhD on 11/24/2020 at 11:46
[2020-11-24] MEDS: SODIUM CHLORIDE 0.9% 1,000 ML 1000 ML IV (12:04)
[2020-11-24 12:09] LABS: Add Manual Diff / Slide Review NO; Basophils Absolute Auto 0 /uL (0-100); Basophils Percent Auto 0.3 % (0-2); Eosinophils Absolute Auto 500 /uL (0-450); Eosinophils Percent Auto 8.3 % (2-4); Hematocrit 37.9 % (36-46); Hemoglobin 12.5 g/dL (12.0-16.0); Lymphocytes Absolute Auto 1700 /uL (1100-4500); Lymphocytes Percent Auto 27.2 % (25-40); Mean Corpuscular HGB Conc 33.1 % (30-36); Mean Corpuscular Hemoglobin 30.1 PG (26-34); Mean Corpuscular Volume 90.9 fL (80-100); Monocytes Absolute Auto 500 /uL (0-900); Monocytes Percent Auto 7.4 % (3-14); Neutrophils Absolute Auto 3500 /uL (1500-7000); Neutrophils Percent Auto 56.8 % (50-75); Platelet Count 273 X10^3/uL (150-400); Red Blood Cell Count 4.17 X10^6/uL (4.0-5.2); White Blood Cell Count 6.2 X10^3/uL (4.5-11.0)
--- NOTE | 2020-11-24 12:12 | ED_ITS ---
HPI - Chest Pain <Galilea VirgenTERESA banegas - Last Filed: 11/24/20 15:22> General Chief Complaint: Dizziness Stated Complaint: Pnuemo Thorax yesterday, dizziness, fainting, ^HR Time Seen by Provider: 11/24/20 11:49 Source: patient Mode of arrival: Wheelchair Limitations: no limitations History of Present Illness HPI narrative: 75yo female who was discharged from hospital yesterday (11/23/2019) with a pneumothorax, presents to the emergency department for dizziness and heart palpitations. Patient states she originally was seen in the emergency department on 11/22/2019 for chest pain when the pneumothorax was discovered. After she was discharged, she woke up this morning and noticed she had more pain that was consistent with the pain from the pneumothorax. Patient took Tylenol at this time, she made breakfast and started feeling faint. Patient states at that point she lied down and felt like her heart was racing, she states ?I checked my apple watch and my heart rate was 124 she denied pain, diaphoresis, or shortness of breath at this time. She decided to be seen in the emergency department-is currently complaining of feeling ?faint? at this time, she denies pain, palpations, dizziness, nausea, vomiting, diarrhea, shortness of breath, cough, or any other concerns. Prior to discharge patient in has been states that she has had episodes in the past, has been worked up extensively by diagnostic tech in his worn a holter monitor in the past. No cause or conclusion was made at that time. Related Data Home Medications Medication Instructions Recorded Confirmed CALCIUM CITRATE/VITAMIN D3 1 tab PO QDAY #0 02/03/12 11/22/20 (Calcium Citrate - Vit D Caplet) lecithin 518 mg PO DAILY #0 04/04/17 11/22/20 cholecalciferol (vitamin D3) 2,000 unit PO DAILY #0 08/07/17 11/22/20 [Vitamin D3] folic acid 400 mcg tablet 400 mcg PO DAILY 04/07/18 11/22/20 Previous Rx's Medication Instructions Recorded potassium citrate 5 mEq (540 mg) See Rx Instructions .ROUTE 05/05/20 tablet,extended release .COMPLEX #90 tab acetaminophen 650 mg PO Q6HR PRN #30 tab 11/23/20 Allergies Allergy/AdvReac Type Severity Reaction Status Date / Time polymyxin B [From POLYTRIM] Allergy Severe EYE DROPS Verified 11/24/20 11:59 - SWELLING ampicillin [AMPICILLIN] Allergy Intermediate RASH Verified 11/24/20 11:59 Penicillins [PENICILLINS] Allergy Intermediate RASH Verified 11/24/20 11:59 trimethoprim [From POLYTRIM] Allergy Unknown Verified 11/24/20 11:59 Bactrim (trimethoprim) AdvReac Intermediate red,raised Uncoded 11/22/20 12:18 , very itchy rash Review of Systems <TERESA Larry - Last Filed: 11/24/20 15:22> Review of Systems Narrative: REVIEW OF SYSTEMS: GENERAL: Denies fevers. HENT: No head trauma. EYES: No vision changes. CARDIOVASCULAR: Reports history of pneumothorax, see HPI. RESPIRATORY: No shortness of breath. GASTROINTESTINAL: No nausea, vomiting, diarrhea, or constipation. MUSCULOSKELETAL: No injury. INTEGUMENTARY: No rash. Patient History <TERESA Larry - Last Filed: 11/24/20 15:22> Medical History (Updated 11/24/20 @ 15:01 by TERESA Larry) Actinic keratosis (1989) Anemia (1963) Chicken pox (1957) Chronic cough (2012) Genital warts (1969) Hematuria (1969) History of heavy periods (1963) History of painful menstruation (1963) Measles (1954) Mumps (1958) Nephrolithiasis (~2011) Plantar warts (~1984) Shoulder pain (~2003) Urinary incontinence (~2009) Surgical History Anesthesia History of bladder suspension procedure (~2002) History of facelift (~2008) History of lithotripsy (~2010) History of tonsillectomy (1951) Status post tubal ligation (~1978) Family History Brother Age: 78 Hypertension High cholesterol Father Stroke Grandfather Heart disease Grandmother Anemia Mother Stroke Grandfather Heart disease Grandmother Stomach cancer Social History marital status: household members: spouse and family lives independently: Yes caregiver/support person: No housing: house pets and animals: Yes education level: college occupational status: previously employed current occupational exposures/hazards: No Previous occupational history: preliminary school psychologist Smoking Status: Never smoker alcohol intake: current substance use type: marijuana Smoking Status: Never smoker alcohol intake frequency: 0-2 drinks per day Substance Use Type: does not use Exam <TERESA Larry - Last Filed: 11/24/20 15:22> Initial Vital Signs Initial Vital Signs: Vital Signs Pulse Rate 87 11/24/20 11:53 Blood Pressure 184/89 H 11/24/20 11:53 Pulse Oximetry 99 11/24/20 11:53 PHYSICAL EXAMINATION: GENERAL: Awake and alert, no distress. HENT: Normocephalic, atraumatic. EYES: Conjunctiva pink, sclera white, no periorbital swelling. No discharge. CHEST: Normal to inspection and without deformities. CARDIOVASCULAR: S1 and S2 sounds normal. Regular rate and rhythm, no murmurs, clicks, or bruits. RESPIRATORY: Normal respiratory rate, trachea midline, airway patent. No stridor, nasal flaring or accessory muscle use. Able to speak in full sentences. Lungs are clear in all king without wheeze, rhonchi, or crackles. MUSCULOSKELETAL: Normal gait and coordination. Equal tone and mass bilaterally. EXTREMITIES: Moves all extremities. SKIN: Warm, dry, soft, appropriate color for ethnicity. No lesions, rashes, or wounds to visualized areas. NEURO: Alert and Oriented X 3. Good coordination. No ataxia or cognitive issues. PSYCH: Appropriate affect and mood. <Danis Silva DO - Last Filed: 11/24/20 17:07> Initial Vital Signs Initial Vital Signs: Vital Signs Pulse Rate 87 11/24/20 11:53 Blood Pressure 184/89 H 11/24/20 11:53 Pulse Oximetry 99 11/24/20 11:53 Course <TERESA Larry - Last Filed: 11/24/20 15:22> Course Course Narrative: During patient's emergency department stay, patient had a few episodes of palpitations. At 1 point she notified nursing of palpitations occurring, monitor reviewed shows sinus rhythm at rate of 94. Discussed laboratory work, imaging, in symptoms extensively with patient and prior to discharge. Patient states she is no longer feeling dizzy after administration of IV fluid. Orders Ordered: ED Orders 11/24/20 11:59 XR chest 1V Stat EKG-12 Lead Stat 11/24/20 12:00 Complete Blood Count AUTO DIFF Stat Comprehensive Metabolic Panel Stat Lipase Stat Thyroid Stimulating Hormone Stat Troponin & CK Cardiac Panel Stat 11/24/20 13:56 EKG-12 Lead Stat 11/24/20 14:02 Troponin I Stat Discontinued Medications Sodium Chloride (Normal Saline 0.9%) 1,000 mls @ 1,000 mls/hr IV BOLUS ONE Stop: 11/24/20 12:58 Last Infusion: 11/24/20 13:03 Dose: 0 mls/hr Documented by: Admin: 11/24/20 12:04 Dose: 1,000 mls/hr Documented by: MAGGIE Consultations Consultation #1: Patient staffed with Dr. Silva, discussed tests, tests results, and plan of care. Vital Signs Vital signs: Vital Signs - 8 hr 11/24/20 11:53 11/24/20 11:59 11/24/20 12:00 Temperature 98.4 F Pulse Rate 87 77 81 Respiratory Rate 15 22 Blood Pressure 184/89 H 187/89 H 182/90 H Pulse Oximetry 99 99 99 11/24/20 12:30 11/24/20 13:00 11/24/20 13:30 Temperature Pulse Rate 76 77 76 Respiratory Rate 20 20 Blood Pressure 161/81 H 161/90 H Pulse Oximetry 99 100 100 11/24/20 14:00 11/24/20 14:30 11/24/20 15:00 Temperature Pulse Rate 80 74 73 Respiratory Rate Blood Pressure Pulse Oximetry 98 99 99 11/24/20 15:10 Temperature Pulse Rate 72 Respiratory Rate Blood Pressure 141/81 H Pulse Oximetry 100 <Danis Silva, DO - Last Filed: 11/24/20 17:07> Orders Ordered: ED Orders 11/24/20 11:59 XR chest 1V Stat EKG-12 Lead Stat 11/24/20 12:00 Complete Blood Count AUTO DIFF Stat Comprehensive Metabolic Panel Stat Lipase Stat Thyroid Stimulating Hormone Stat Troponin & CK Cardiac Panel Stat 11/24/20 13:56 EKG-12 Lead Stat 11/24/20 14:02 Troponin I Stat Discontinued Medications Sodium Chloride (Normal Saline 0.9%) 1,000 mls @ 1,000 mls/hr IV BOLUS ONE Stop: 11/24/20 12:58 Last Infusion: 11/24/20 13:03 Dose: 0 mls/hr Documented by: Admin: 11/24/20 12:04 Dose: 1,000 mls/hr Documented by: MAGGIE Vital Signs Vital signs: Vital Signs - 8 hr 11/24/20 11:53 11/24/20 11:59 11/24/20 12:00 Temperature 98.4 F Pulse Rate 87 77 81 Respiratory Rate 15 22 Blood Pressure 184/89 H 187/89 H 182/90 H Pulse Oximetry 99 99 99 11/24/20 12:30 11/24/20 13:00 11/24/20 13:30 Temperature Pulse Rate 76 77 76 Respiratory Rate 20 20 Blood Pressure 161/81 H 161/90 H Pulse Oximetry 99 100 100 11/24/20 14:00 11/24/20 14:30 11/24/20 15:00 Temperature Pulse Rate 80 74 73 Respiratory Rate Blood Pressure Pulse Oximetry 98 99 99 11/24/20 15:10 Temperature Pulse Rate 72 Respiratory Rate Blood Pressure 141/81 H Pulse Oximetry 100 MDM - Chest Pain <TERESA Larry - Last Filed: 11/24/20 15:22> Medical Records Data Attestation: I reviewed the patient's medical records. Lab Data Attestation: I reviewed the patient's lab results. Result diagrams: 11/24/20 12:00 11/24/20 12:00 Labs: Lab Results 11/24/20 11/24/20 11/24/20 Range/Units 12:00 12:00 12:00 WBC 6.2 (4.5-11.0) X10^3/uL RBC 4.17 (4.0-5.2) X10^6/uL Hgb 12.5 (12.0-16.0) g/dL Hct 37.9 (36-46) % MCV 90.9 (80-100) fL MCH 30.1 (26-34) PG MCHC 33.1 (30-36) % RDW 14.0 (11.6-14.8) % Plt Count 273 (150-400) X10^3/uL Neut % (Auto) 56.8 (50-75) % Lymph % (Auto) 27.2 (25-40) % [place] % (Auto) 7.4 (3-14) % Eos % (Auto) 8.3 H (2-4) % Baso % (Auto) 0.3 (0-2) % Neut # (Auto) 3500 (5951-7739) /uL Lymph # (Auto) 1700 (2777-6824) /uL [place] # (Auto) 500 (0-900) /uL Eos # (Auto) 500 H (0-450) /uL Baso # (Auto) 0 (0-100) /uL Sodium 140 (137-145) mmol/L Potassium 3.8 (3.4-5.1) mmol/L Chloride 108 H (98-107) mmol/L Carbon Dioxide 25 (22-32) mmol/L BUN 21 H (7-17) mg/dL Creatinine 0.83 (0.52-1.04) mg/dL Estimated GFR > 60.0 (>60) mL/min BUN/Creatinine Ratio 25.3 H (6-22) Glucose 107 (80-110) mg/dL Calcium 9.5 (8.4-10.2) mg/dL Total Bilirubin 0.9 (0.2-1.3) mg/dL AST 29 (14-36) IU/L ALT 16 (<35) IU/L Alkaline Phosphatase 56 (38-126) U/L Total Creatine Kinase 58 (30-135) U/L CK-MB (CK-2) TNP CK-MB (CK-2) Rel Index TNP Troponin I < 0.012 (0.01-0.034) ng/mL Total Protein 7.5 (6.3-8.2) g/dL Albumin 4.3 (3.5-5.0) g/dL Globulin 3.2 (1.7-4.1) g/dL Albumin/Globulin Ratio 1.3 (1.0-2.8) Lipase 77 (23-300) U/L TSH 3.55 (0.47-4.68) uIU/mL 11/24/20 Range/Units 14:02 WBC (4.5-11.0) X10^3/uL RBC (4.0-5.2) X10^6/uL Hgb (12.0-16.0) g/dL Hct (36-46) % MCV (80-100) fL MCH (26-34) PG MCHC (30-36) % RDW (11.6-14.8) % Plt Count (150-400) X10^3/uL Neut % (Auto) (50-75) % Lymph % (Auto) (25-40) % [place] % (Auto) (3-14) % Eos % (Auto) (2-4) % Baso % (Auto) (0-2) % Neut # (Auto) (6493-6824) /uL Lymph # (Auto) (0278-3610) /uL [place] # (Auto) (0-900) /uL Eos # (Auto) (0-450) /uL Baso # (Auto) (0-100) /uL Sodium (137-145) mmol/L Potassium (3.4-5.1) mmol/L Chloride (98-107) mmol/L Carbon Dioxide (22-32) mmol/L BUN (7-17) mg/dL Creatinine (0.52-1.04) mg/dL Estimated GFR (>60) mL/min BUN/Creatinine Ratio (6-22) Glucose (80-110) mg/dL Calcium (8.4-10.2) mg/dL Total Bilirubin (0.2-1.3) mg/dL AST (14-36) IU/L ALT (<35) IU/L Alkaline Phosphatase (38-126) U/L Total Creatine Kinase (30-135) U/L CK-MB (CK-2) CK-MB (CK-2) Rel Index Troponin I < 0.012 (0.01-0.034) ng/mL Total Protein (6.3-8.2) g/dL Albumin (3.5-5.0) g/dL Globulin (1.7-4.1) g/dL Albumin/Globulin Ratio (1.0-2.8) Lipase (23-300) U/L TSH (0.47-4.68) uIU/mL Imaging Data Chest x-ray: Radiologist's Impression: [address] [id number] ReportSigned Patient: Mary Beth Wong AMR#: [id number]: 7Acct:[id number]/Sex: 75 / FDate of Service: 11/24/20Loc: EDAccession Number: [id number] Procedure: XR chest 1V Ordering Provider: Galilea Mckenna PROCEDURE: XR CHEST 1V INDICATIONS: hx pneumo, worsening pain TECHNIQUE: One view of the chest was acquired. COMPARISON: [facility], , XR CHEST 2V, 11/23/2020, 12:14. FINDINGS: Surgical changes and devices: None. Lungs and pleura: Lungs are clear. Small apically right pneumothorax slightly decreased in size compared to November 23, 2020. Mediastinum: Mediastinal contours appear normal. Heart size is normal. Bones and chest wall: No suspicious bony lesions. S-shaped thoracolumbar spine scoliosis Overlying soft tissues appear unremarkable. IMPRESSION: Small apical right pneumothorax decreased in size compared to November 23, 2020. Dictated by: Donna Hubbard MD, PhD on 11/24/2020 at 11:44 Approved by: Donna Hubbard MD, PhD on 11/24/2020 at 11:46 ECG Data Interpretation: 1210: Sinus rhythm, rate 77, HI interval 140, QTC 411. No ST elevation. No specific ST change in V6. This change is different from EKG on 11/24/2001. T-wave inversion noted in V1. EKG also viewed by Dr. Silva. 1356: Sinus rhythm, rate 69, HI interval 114, QTC 424. No ST elevation or ST depression. No T-wave abnormality. Prior nonspecific ST changes are no longer present. I suspect this incidence and past EKG was most likely due to artifact. EKG also viewed by DR Silva per protocol. [facility] Narrative Medical decision making narrative: 75-year-old female with history of pneumothorax, recently discharged yesterday, presents emergency department for heart palpitations and dizziness that started today. I am unsure of exact cause of patient's heart palpitations however, dehydration may have played a role as patient states she is feeling better after 1 L fluids. Less concern for ACS given negative initial and 2 hour repeat troponin. Initially the 1st EKG showed some nonspecific ST changes in lead V6, upon repeat EKG nonspecific changes were no longer seen. I suspect this is most likely artifact given its own presentation in 1 lead and resolution with a repeat EKG. Patient denies any chest pain during emergency department stay, no other concerning factors such as diaphoresis or shortness of breath. Pneumothorax appears to be small and resolving, less likely the issue. TSH within normal limits, electrolytes within normal limits. Less likely cardiac conductive issues given lack of arrhythmia seen when the pal pitations were present, no changes to EKGs. Patient was encouraged to follow up with PCP, laboratory work and plan of care explained to family and patient. Return precautions given for new or worsening symptoms. <Danis Silva, DO - Last Filed: 11/24/20 17:07> Lab Data Labs: Lab Results 11/24/20 11/24/20 11/24/20 Range/Units 12:00 12:00 12:00 WBC 6.2 (4.5-11.0) X10^3/uL RBC 4.17 (4.0-5.2) X10^6/uL Hgb 12.5 (12.0-16.0) g/dL Hct 37.9 (36-46) % MCV 90.9 (80-100) fL MCH 30.1 (26-34) PG MCHC 33.1 (30-36) % RDW 14.0 (11.6-14.8) % Plt Count 273 (150-400) X10^3/uL Neut % (Auto) 56.8 (50-75) % Lymph % (Auto) 27.2 (25-40) % [place] % (Auto) 7.4 (3-14) % Eos % (Auto) 8.3 H (2-4) % Baso % (Auto) 0.3 (0-2) % Neut # (Auto) 3500 (0230-6796) /uL Lymph # (Auto) 1700 (0317-7339) /uL [place] # (Auto) 500 (0-900) /uL Eos # (Auto) 500 H (0-450) /uL Baso # (Auto) 0 (0-100) /uL Sodium 140 (137-145) mmol/L Potassium 3.8 (3.4-5.1) mmol/L Chloride 108 H (98-107) mmol/L Carbon Dioxide 25 (22-32) mmol/L BUN 21 H (7-17) mg/dL Creatinine 0.83 (0.52-1.04) mg/dL Estimated GFR > 60.0 (>60) mL/min BUN/Creatinine Ratio 25.3 H (6-22) Glucose 107 (80-110) mg/dL Calcium 9.5 (8.4-10.2) mg/dL Total Bilirubin 0.9 (0.2-1.3) mg/dL AST 29 (14-36) IU/L ALT 16 (<35) IU/L Alkaline Phosphatase 56 (38-126) U/L Total Creatine Kinase 58 (30-135) U/L CK-MB (CK-2) TNP CK-MB (CK-2) Rel Index TNP Troponin I < 0.012 (0.01-0.034) ng/mL Total Protein 7.5 (6.3-8.2) g/dL Albumin 4.3 (3.5-5.0) g/dL Globulin 3.2 (1.7-4.1) g/dL Albumin/Globulin Ratio 1.3 (1.0-2.8) Lipase 77 (23-300) U/L TSH 3.55 (0.47-4.68) uIU/mL 11/24/20 Range/Units 14:02 WBC (4.5-11.0) X10^3/uL RBC (4.0-5.2) X10^6/uL Hgb (12.0-16.0) g/dL Hct (36-46) % MCV (80-100) fL MCH (26-34) PG MCHC (30-36) % RDW (11.6-14.8) % Plt Count (150-400) X10^3/uL Neut % (Auto) (50-75) % Lymph % (Auto) (25-40) % [place] % (Auto) (3-14) % Eos % (Auto) (2-4) % Baso % (Auto) (0-2) % Neut # (Auto) (9805-7542) /uL Lymph # (Auto) (8200-7966) /uL [place] # (Auto) (0-900) /uL Eos # (Auto) (0-450) /uL Baso # (Auto) (0-100) /uL Sodium (137-145) mmol/L Potassium (3.4-5.1) mmol/L Chloride (98-107) mmol/L Carbon Dioxide (22-32) mmol/L BUN (7-17) mg/dL Creatinine (0.52-1.04) mg/dL Estimated GFR (>60) mL/min BUN/Creatinine Ratio (6-22) Glucose (80-110) mg/dL Calcium (8.4-10.2) mg/dL Total Bilirubin (0.2-1.3) mg/dL AST (14-36) IU/L ALT (<35) IU/L Alkaline Phosphatase (38-126) U/L Total Creatine Kinase (30-135) U/L CK-MB (CK-2) CK-MB (CK-2) Rel Index Troponin I < 0.012 (0.01-0.034) ng/mL Total Protein (6.3-8.2) g/dL Albumin (3.5-5.0) g/dL Globulin (1.7-4.1) g/dL Albumin/Globulin Ratio (1.0-2.8) Lipase (23-300) U/L TSH (0.47-4.68) uIU/mL Discharge Plan Departure Patient Disposition: Home Clinical Impression: Heart palpitations Instructions: DI for Palpitations Activity Restrictions/Additional Instructions: Thank you for entrusting me with your care today. As discussed, your chest x-ray shows that your pneumothorax is decreasing in size. Your laboratory work and EKGs are non concerning. I am unsure the exact cause of your palpitations. I recommend you stay hydrated over the next few days and avoid strenuous activity. Follow-up with your primary care provider in the next 1-2 weeks for further evaluation and continued testing if indicated. Return emergency department for any new or worsening symptoms such as worsening chest pain, syncope, vomiting, high fevers, or any other concerns. Prescriptions: No Action CALCIUM CITRATE/VITAMIN D3 (Calcium Citrate - Vit D Caplet) 1 tab PO QDAY Qty: 0 RF: 0 lecithin 518 MG capsule 518 mg PO DAILY Qty: 0 RF: 0 cholecalciferol (vitamin D3) [Vitamin D3] 2,000 UNIT capsule 2,000 unit PO DAILY Qty: 0 RF: 0 potassium citrate 5 mEq (540 mg) tablet extended release See Rx Instructions .ROUTE .COMPLEX Qty: 90 RF: 0 folic acid 400 mcg tablet 400 mcg PO DAILY RF: 0 acetaminophen 325 mg Tablet 650 mg PO Q6HR PRN (Reason: Fever/Mild Pain (1-3)) Qty: 30 RF: 0 Referrals: Alan Dixon MD [Primary Care Provider] - <Danis Silva, - Last Filed: 11/24/20 17:07> Cosign ED Attending Cosignature Attestation: Dr Silva Co-Sign Statement: I was available for consultation during this patient's emergency department visit. This chart is signed by myself for administrative purposes only. I did not have direct contact with this patient during this visit. They were seen independently by the APC.
[2020-11-24 12:22] LABS: Alanine Aminotransferase 16 IU/L (<35); Albumin 4.3 g/dL (3.5-5.0); Albumin Globulin Ratio 1.3 (1.0-2.8); Alkaline Phosphatase 56 U/L (38-126); Aspartate Aminotransferase 29 IU/L (14-36); BUN Creatinine Ratio 25.3 (6-22); Bilirubin Total 0.9 mg/dL (0.2-1.3); Blood Urea Nitrogen 21 mg/dL (7-17); Calcium 9.5 mg/dL (8.4-10.2); Carbon Dioxide 25 mmol/L (22-32); Chloride 108 mmol/L (98-107); Creatine Kinase 58 U/L (30-135); Estimated Glomerular Filt Rate > 60.0 mL/min (>60); Globulin 3.2 g/dL (1.7-4.1); Glucose 107 mg/dL (80-110); HEMOLYSIS < 15 (0-50); Lipase 77 U/L (23-300); Potassium 3.8 mmol/L (3.4-5.1); Sodium 140 mmol/L (137-145); Total Protein 7.5 g/dL (6.3-8.2)
[2020-11-24 12:33] LABS: Troponin I < 0.012 ng/mL (0.01-0.034)
--- NOTE | 2020-11-24 12:40 | PC.NURSE ---
patient states that she occasionally feels her heart going fast. She bears down and it goes away. She says this morning it lasted a little longer which made her feel faint. She also said there is no chest pain related to the rapid heart rate.
[2020-11-24 12:57] LABS: Thyroid Stimulating Hormone 3.55 uIU/mL (0.47-4.68)
[2020-11-24 14:38] LABS: Troponin I < 0.012 ng/mL (0.01-0.034)
== END 2020-11-24 15:11 | disposition home or self-care (01) ==
PROVIDERS: Emergency Provider Nurse Practitioner; PCP Family Medicine
DX: R00.2 Palpitations (principal); R42 Dizziness and giddiness
CPT/HCPCS: 36415; 71045; 80053; 82550; 83690; 84443; 84484; 85025; 93005; 93010; 96360; 99281; 99284

== ENCOUNTER → 2020-12-04 10:01 | Outpatient (CLI) | payer MEDICARE, OTHER, SELFPAY ==
[2020-11-22 20:03] VITALS: BMI 21.9
--- NOTE | 2020-12-04 11:03 | DI.RAD.S_ITS ---
PROCEDURE: XR CHEST 2V INDICATIONS: FU Pneumothorax TECHNIQUE: 2 views of the chest were acquired. COMPARISON: [facility], CR, XR CHEST 2V, 11/23/2020, 12:14. [facility], CR, XR CHEST 1V, 11/24/2020, 12:27. FINDINGS: Surgical changes and devices: None. Lungs and pleura: Lungs are clear. No pleural effusions or pneumothorax. Mediastinum: Mediastinal contours are normal. Heart size is normal. Bones and chest wall: No suspicious bony abnormalities. Soft tissues appear unremarkable. Moderate dextroscoliosis centered at the lower thoracic level. IMPRESSION: Resolved right apical pneumothorax. Dictated by: Franc MORENO Interpreted: Alan Farnsworth MD on 12/04/2020 at 11:27 Approved by: Alan Farnsworth M.D. on 12/04/2020 at 14:06
== END ==
PROVIDERS: PCP Family Medicine; Referring Provider Family Medicine; Visit Provider Family Medicine
DX: J93.9 Pneumothorax, unspecified (principal)
CPT/HCPCS: 71046

== ENCOUNTER → 2022-06-07 09:28 | Outpatient (CLI) | payer MEDICARE, OTHER, SELFPAY ==
[2020-11-22 20:03] VITALS: BMI 21.9
--- NOTE | 2022-06-07 | DI.ECHO.S_ITS ---
[facility]---------+ [facility] +---------+ : : [address] [place] [address] : : : : [id number] : : : : Phone: [phone]---------+ Echocardiogram Report + + :Name: ALTAGRACIA GOMEZ Study Date: 06/07/2022 Height: 62 in : :[facility] ReadingLocation: Weight: 107 lb : : Gender: Female BSA: 1.5 m2 : :: 1945 Age: 77 yrs BP: 158/101 mmHg: :Reason For Study: Tricuspid Valve - Regurgitation : :Ordering Physician: ANGY, : :LAVERNE Performed By: Leeroy Proctor : :Referring: LAVERNE TRAVIS : + + Interpretation Summary The left ventricle is normal in size and wall thickness. The ejection fraction is estimated to be 60-65%. There has been no significant change in LVEF since the previous exam. The right ventricle is normal in size and function. There is mild aortic regurgitation. Compared to the prior echo study, there has been no change in the severity of aortic regurgitation. There is moderate tricuspid regurgitation. Previously moderate TR. The right ventricular systolic pressure is estimated to be at least 28 mmHg based on an estimated right atrial pressure of 3 mm Hg. The aortic root is mildly dilated. The ascending aorta is mildly enlarged. 3.9 cm in diameter. Previously 3.8 cm. Procedure: A two-dimensional transthoracic echocardiogram with color flow and Doppler was performed. The study quality was technically adequate. Comparison is made with the echocardiogram of 06/22/2020. Left Ventricle: The left ventricle is normal in size and wall thickness. There is no thrombus. Left ventricular systolic function is normal. The ejection fraction is estimated to be 60-65%. There has been no significant change since the previous exam. There are no focal wall motion abnormalities. Diastolic parameters suggest a relaxation abnormality of the left ventricle, consistent with probable normal filling pressures. Right Ventricle: The right ventricle is normal in size and function. Atria: Borderline left atrial enlargement. Right atrial size is normal. There has been no significant change since the previous study. The interatrial septum grossly appears intact with no obvious evidence for an atrial septal defect. Mitral Valve: The mitral valve is normal in structure and function. There is trace mitral regurgitation. Aortic Valve: The aortic valve is normal in structure and function. The aortic valve is trileaflet. There is no aortic valve stenosis. There is mild aortic regurgitation. Compared to the prior echo study, there has been no change in the severity of aortic regurgitation. Tricuspid Valve: Slightly thickened tricuspid valve. There is moderate tricuspid regurgitation. The right ventricular systolic pressure is estimated to be at least 28 mmHg based on an estimated right atrial pressure of 3 mm Hg. Compared to the prior echo exam, there has been no change in TR severity. Pulmonic Valve: The pulmonic valve is normal in structure and function. There is no pulmonic valvular regurgitation. Great Vessels: The aortic root is mildly dilated. The ascending aorta is mildly enlarged. The IVC is of normal diameter and collapses greater than 50% with a sniff. This suggests a low right atrial pressure of 3 mm Hg. Pericardium/ Pleura There is no pericardial effusion. There is an anterior echo-free space consistent with a fat pad. There is no pleural effusion. MMode/2D Measurements & Calculations LVIDd: 4.6 cm LVOT diam: 1.8 cm LVIDs: 3.0 cm Ao root diam: 4.0 cm FS: 34.9 % asc Aorta Diam: 3.9 cm IVSd: 0.83 cm LVPWd: 0.69 cm LV lopez. diameter/BSA (cm/m^2): 3.1 LV sys. diameter/BSA (cm/m^2): 2.1 LA A2 area: 18.7 cm2 RA long axis: 5.1 cm LA A4 area: 16.9 cm2 RA area: 11.9 cm2 LA length (vol): 5.5 cm RA vol: 23.7 ml LA vol: 49.1 ml RA : 16.2 ml/m2 LA vol index: 33.5 ml/m2 TAPSE: 1.9 cm Doppler Measurements & Calculations Ao V2 max: 126.8 cm/sec LVOT Max Levar: 76.4 cm/sec Ao V2 mean: 89.3 cm/sec LV V1 max P.3 mmHg Ao max P.4 mmHg LV V1 VTI: 16.8 cm Ao mean P.5 mmHg BRIGIDA(I,D): 1.8 cm2 Ao V2 VTI: 24.6 cm BRIGIDA(V,D): 1.6 cm2 sev ratio: 0.68 BRIGIDA indexed to BSA (cm^2/m^2): 1.2 AI P1/2t: 513.5 msec AI dec slope: 228.3 cm/sec2 MV E max levar: 57.6 cm/sec TR max levar: 249.2 cm/sec MV A max levar: 66.1 cm/sec TR max P.8 mmHg MV E/A: 0.87 Med Peak E' Levar: 5.8 cm/sec E/E' med: 9.9 Lat Peak E' Levar: 7.0 cm/sec E/E' lat: 8.3 E/e' average: 9.1 MV dec time: 0.27 sec SV(LVOT): 43.2 ml Reading Physician:05:44 PM
== END ==
PROVIDERS: PCP Family Medicine; Referring Provider Internal Medicine Cardiovascular Disease; Visit Provider Internal Medicine Cardiovascular Disease
DX: I08.2 Rheumatic disorders of both aortic and tricuspid valves (principal); I77.810 Thoracic aortic ectasia; I77.89 Other specified disorders of arteries and arterioles
CPT/HCPCS: 93306

== ENCOUNTER → 2022-07-15 10:53 | Outpatient (CLI) | payer MEDICARE, OTHER, SELFPAY ==
[2020-11-22 20:03] VITALS: BMI 21.9
[2022-07-15 12:14] LABS: Add Manual Diff / Slide Review NO; Basophils Absolute Auto 0 /uL (0-100); Basophils Percent Auto 0.3 % (0-2); Eosinophils Absolute Auto 200 /uL (0-450); Eosinophils Percent Auto 4.7 % (2-4); Hematocrit 36.9 % (36-46); Hemoglobin 12.5 g/dL (12.0-16.0); Lymphocytes Absolute Auto 1500 /uL (1100-4500); Lymphocytes Percent Auto 38.2 % (25-40); Mean Corpuscular HGB Conc 33.9 % (30-36); Mean Corpuscular Hemoglobin 30.4 PG (26-34); Mean Corpuscular Volume 89.6 fL (80-100); Monocytes Absolute Auto 300 /uL (0-900); Neutrophils Absolute Auto 1900 /uL (1500-7000); Neutrophils Percent Auto 48.8 % (50-75); Platelet Count 272 X10^3/uL (150-400); Red Blood Cell Count 4.12 X10^6/uL (4.0-5.2); Red Cell Distribution Width 14.5 % (11.6-14.8); White Blood Cell Count 3.8 X10^3/uL (4.5-11.0)
[2022-07-15 12:20] LABS: Alanine Aminotransferase 17 IU/L (<35); Albumin Globulin Ratio 1.2 (1.0-2.8); Alkaline Phosphatase 48 U/L (38-126); Aspartate Aminotransferase 28 IU/L (14-36); BUN Creatinine Ratio 25.3 (6-22); Bilirubin Total 0.9 mg/dL (0.2-1.3); Blood Urea Nitrogen 20 mg/dL (7-17); Carbon Dioxide 25 mmol/L (22-32); Chloride 108 mmol/L (98-107); Cholesterol 236 mg/dL (140-199); Estimated Glomerular Filt Rate > 60 mL/min (>60); Globulin 3.3 g/dL (1.7-4.1); Glucose 99 mg/dL (80-110); HDL Cholesterol 93 mg/dL (40-60); HEMOLYSIS < 15 (0-50); LDL Cholesterol Calculated 132 mg/dL (<100); Potassium 4.6 mmol/L (3.4-5.1); Sodium 141 mmol/L (137-145); Total Protein 7.3 g/dL (6.3-8.2); Triglycerides 55 mg/dL (35-150)
[2022-07-15 12:50] LABS: TSH w/ Reflex to FT4 2.27 uIU/mL (0.47-4.68)
== END ==
PROVIDERS: PCP Family Medicine; Referring Provider Family Medicine; Visit Provider Family Medicine
DX: D64.9 Anemia, unspecified (principal); E78.5 Hyperlipidemia, unspecified
CPT/HCPCS: 36415; 80053; 80061; 84443; 85025

== ENCOUNTER → 2023-08-28 12:35 | Outpatient (CLI) | payer MEDICARE, OTHER, SELFPAY ==
[2020-11-22 20:03] VITALS: BMI 21.9
--- NOTE | 2023-08-28 12:37 | DI.RAD.S_ITS ---
PROCEDURE: XR CHEST 2V INDICATIONS: cough TECHNIQUE: 2 views of the chest were acquired. COMPARISON: [facility], CR, XR CHEST 2V, 12/04/2020, 11:02. FINDINGS: Surgical changes and devices: None. Lungs and pleura: Lungs are clear. No pleural effusions or pneumothorax. Mediastinum: Mediastinal contours are normal. Heart size is normal. Bones and chest wall: No suspicious bony abnormalities. Stable thoracolumbar spine scoliosis. Soft tissues appear unremarkable. IMPRESSION: No acute cardiopulmonary abnormality is seen. Dictated by: Donna Hubbard MD, PhD on 08/28/2023 at 14:13 Approved by: Donna Hubbard MD, PhD on 08/28/2023 at 14:14
== END ==
PROVIDERS: PCP Family Medicine; Referring Provider Family Medicine; Visit Provider Family Medicine
DX: R05.9 Cough, unspecified (principal)
CPT/HCPCS: 71046

== ENCOUNTER → 2023-10-10 14:32 | Outpatient (CLI) | payer MEDICARE, OTHER, SELFPAY ==
[2020-11-22 20:03] VITALS: BMI 21.9
[2023-10-10 15:45] LABS: Influenza A - CEPHEID Flu A NEGATIVE (NEGATIVE); Influenza B - CEPHEID Flu B NEGATIVE (NEGATIVE); Respiratory Syncytial Virus Negative (Negative)
[2023-10-10 15:49] LABS: COVID-19 CEPHEID 4-PLEX PCR Negative (Negative)
== END ==
PROVIDERS: PCP Family Medicine; Visit Provider Physician Assistant
DX: R05.1 Acute cough (principal); J02.9 Acute pharyngitis, unspecified
CPT/HCPCS: 0241U; 87070

== ENCOUNTER → 2023-11-15 08:35 | Outpatient (CLI) | payer MEDICARE, OTHER, SELFPAY ==
[2020-11-22 20:03] VITALS: BMI 21.9
[2023-11-15 09:29] LABS: Add Manual Diff / Slide Review NO; Basophils Absolute Auto 0 /uL (0-100); Basophils Percent Auto 0.2 % (0-2); Eosinophils Absolute Auto 200 /uL (0-450); Eosinophils Percent Auto 6.2 % (2-4); Hematocrit 35.5 % (36-46); Hemoglobin 12.1 g/dL (12.0-16.0); Lymphocytes Absolute Auto 1500 /uL (1100-4500); Lymphocytes Percent Auto 38.8 % (25-40); Mean Corpuscular HGB Conc 34.2 % (30-36); Mean Corpuscular Hemoglobin 30.9 PG (26-34); Mean Corpuscular Volume 90.3 fL (80-100); Monocytes Absolute Auto 300 /uL (0-900); Monocytes Percent Auto 8.4 % (3-14); Neutrophils Absolute Auto 1800 /uL (1500-7000); Neutrophils Percent Auto 46.4 % (50-75); Platelet Count 280 X10^3/uL (150-400); Red Blood Cell Count 3.93 X10^6/uL (4.0-5.2); Red Cell Distribution Width 14.1 % (11.6-14.8); White Blood Cell Count 3.9 X10^3/uL (4.5-11.0)
[2023-11-15 09:40] LABS: Alanine Aminotransferase 19 IU/L (<35); Albumin Globulin Ratio 1.3 (1.0-2.8); Alkaline Phosphatase 41 U/L (38-126); Aspartate Aminotransferase 27 IU/L (14-36); BUN Creatinine Ratio 24.1 (6-22); Bilirubin Total 1.2 mg/dL (0.2-1.3); Blood Urea Nitrogen 20 mg/dL (7-17); Calcium 9.7 mg/dL (8.4-10.2); Carbon Dioxide 27 mmol/L (22-32); Chloride 108 mmol/L (98-107); Cholesterol 273 mg/dL (140-199); Estimated Glomerular Filt Rate > 60 mL/min (>60); Globulin 3.2 g/dL (1.7-4.1); Glucose 102 mg/dL (80-110); HDL Cholesterol 97 mg/dL (40-60); HEMOLYSIS < 15 (0-50); LDL Cholesterol Calculated 160 mg/dL (<100); Potassium 4.7 mmol/L (3.4-5.1); Sodium 139 mmol/L (137-145); Total Protein 7.2 g/dL (6.3-8.2); Triglycerides 78 mg/dL (35-150)
[2023-11-15 10:07] LABS: TSH w/ Reflex to FT4 2.81 uIU/mL (0.47-4.68)
== END ==
LOC: LAB 08:36
PROVIDERS: PCP Family Medicine; Referring Provider Family Medicine; Visit Provider Family Medicine
DX: R05.9 Cough, unspecified (principal); E78.5 Hyperlipidemia, unspecified
CPT/HCPCS: 36415; 80053; 80061; 84443; 85025

== ENCOUNTER → 2024-02-08 15:01 | Outpatient (CLI) | payer MEDICARE, OTHER, SELFPAY ==
[2020-11-22 20:03] VITALS: BMI 21.9
[2024-02-08 16:08] LABS: Appearance Urine UA CLEAR; Bilirubin Urine UA NEGATIVE (NEGATIVE); Color Urine UA YELLOW; Glucose Urine UA NEGATIVE (Negative); Ketones Urine UA NEGATIVE (NEGATIVE); Leukocyte Esterase Urine UA 1+ (NEGATIVE); Nitrite Urine UA NEGATIVE (Negative); Occult Blood Urine UA 3+ (Negative); Protein Urine UA NEGATIVE (Negative); Specific Gravity Urine UA 1.015 (1.000-1.035); Urobilinogen Urine UA 0.2 E.U./dL (0.2)
[2024-02-08 16:12] LABS: pH Urine UA 5.5 (4.5-8.0)
[2024-02-08 16:26] LABS: RBC Urine 5-10/HPF (0-5/HPF); Urine Volume 10mL (spun)
[2024-02-08 16:27] LABS: Bacteria Urine None Seen; Culture Indicated Urine Specimen Cultured; Squamous Epithelial Cell Urine 1-5 /HPF (0-5/HPF); WBC Urine 5-10/HPF (0-5/HPF)
== END ==
PROVIDERS: PCP Family Medicine; Visit Provider Physician Assistant Medical
DX: R39.9 Unspecified symptoms and signs involving the genitourinary system (principal)
CPT/HCPCS: 81001; 87086

== ENCOUNTER → 2024-02-24 12:02 | Outpatient (CLI) | payer MEDICARE, OTHER, SELFPAY ==
[2020-11-22 20:03] VITALS: BMI 21.9
[2024-02-24 12:38] LABS: Appearance Urine UA CLEAR; Bilirubin Urine UA NEGATIVE (NEGATIVE); Color Urine UA YELLOW; Glucose Urine UA NEGATIVE (Negative); Ketones Urine UA NEGATIVE (NEGATIVE); Leukocyte Esterase Urine UA NEGATIVE (NEGATIVE); Nitrite Urine UA NEGATIVE (Negative); Occult Blood Urine UA 2+ (Negative); Protein Urine UA NEGATIVE (Negative); Urobilinogen Urine UA 0.2 E.U./dL (0.2)
[2024-02-24 12:44] LABS: pH Urine UA 6.5 (4.5-8.0)
[2024-02-24 12:54] LABS: Bacteria Urine Moderate (10-30); Culture Indicated Urine Cult Not Indicated; RBC Urine 5-10/HPF (0-5/HPF); Squamous Epithelial Cell Urine 0-1 /HPF (0-5/HPF); Urine Volume 10mL (spun); WBC Urine 0-1/HPF (0-5/HPF)
== END ==
PROVIDERS: PCP Family Medicine; Referring Provider Family Medicine; Visit Provider Family Medicine
DX: R39.9 Unspecified symptoms and signs involving the genitourinary system (principal)
CPT/HCPCS: 81001

== ENCOUNTER → 2024-02-28 08:34 | Outpatient (CLI) | payer MEDICARE, OTHER, SELFPAY ==
[2020-11-22 20:03] VITALS: BMI 21.9
--- NOTE | 2024-02-28 08:36 | DI.MG.S_ITS ---
BILATERAL DIGITAL SCREENING MAMMOGRAM 3D/2D WITH CAD: 02/28/2024 CLINICAL: Routine screening. Family history of breast cancer. Comparison is made to exams dated: 11/14/2020 mammogram, 10/08/2018 mammogram, and 03/06/2017 mammogram - [facility]. There are scattered areas of fibroglandular density in both breasts (category b / 25%-50% glandular tissue). Current study was also evaluated with a Computer Aided Detection (CAD) system. No significant masses, calcifications, or other findings are seen in either breast. There has been no significant interval change. IMPRESSION: NEGATIVE There is no mammographic evidence of malignancy. A 1 year screening mammogram is recommended. Based on the Tyrer Cuzick model (a risk assessment model) the patient's lifetime risk is 4.5% and her 10 year risk is 0.0%. According to the ACR, ACS, and NCCN guidelines, an annual breast MRI exam along with mammogram is recommended if the patient's lifetime risk is 20% or greater. This exam was interpreted at Station ID: [id number]. NOTE: For mammograms, a report in lay terms will be sent to the patient. Approximately 15% of breast malignancies will not be visualized mammographically. In the management of a palpable breast mass, a negative mammogram must not discourage biopsy of a clinically suspicious lesion. Electronically Signed By: Aaron araya/connor:03/01/2024 07:39:26 letter sent: Normal Exam ACR BI-RADS Category 1: Negative [id number]
[2024-02-28 09:28] LABS: Cholesterol 227 mg/dL (140-199); HDL Cholesterol 73 mg/dL (40-60); LDL Cholesterol Calculated 135 mg/dL (<100); Triglycerides 96 mg/dL (35-150)
[2024-02-28 10:06] LABS: TSH w/ Reflex to FT4 2.52 uIU/mL (0.47-4.68)
== END ==
PROVIDERS: Physician Assistant; PCP Family Medicine; Referring Provider Family Medicine; Visit Provider Family Medicine
DX: Z12.31 Encounter for screening mammogram for malignant neoplasm of breast (principal); Z80.3 Family history of malignant neoplasm of breast; R92.323 Mammographic fibroglandular density, bilateral breasts; E78.5 Hyperlipidemia, unspecified
CPT/HCPCS: 36415; 77063; 77067; 80061; 84443

== ENCOUNTER → 2024-04-15 08:40 | Outpatient (CLI) | payer MEDICARE, OTHER, SELFPAY ==
[2020-11-22 20:03] VITALS: BMI 21.9
== END ==
LOC: RESP 08:43
PROVIDERS: PCP Family Medicine; Referring Provider Family Medicine; Visit Provider Family Medicine
DX: R05.9 Cough, unspecified (principal); R06.02 Shortness of breath; Z87.891 Personal history of nicotine dependence; R94.2 Abnormal results of pulmonary function studies
CPT/HCPCS: 94060; 94726; 94729

== ENCOUNTER → 2024-04-19 08:45 | Outpatient (CLI) | payer MEDICARE, OTHER, SELFPAY ==
[2020-11-22 20:03] VITALS: BMI 21.9
--- NOTE | 2024-04-19 08:46 | DI.RAD.S_ITS ---
PROCEDURE: FL BARIUM SWALLOW W SPEECH INDICATIONS: dysphagia COMPARISON: None. TECHNIQUE: Examination was conducted in conjunction with speech pathology per standard protocol. In the lateral projection, filming was performed of the patient swallowing. AP projection filming may also be performed with patient swallowing. COMPARISON: FINDINGS: Function: The oral preparatory phase appears normal, with proper containment. No laryngotracheal penetration or aspiration. No pathologic vallecular pooling. Mild appearance of decreased transit of contrast within the distal esophagus along the esophageal wall. No obstruction or reflux. Morphology: No cricopharyngeal bar is identified. No cervical esophageal webs. No Zenker's diverticulum. No strictures. IMPRESSION: Mild appearance of decreased transit of contrast within the distal esophagus along the esophageal wall without obstruction or reflux. This may be related to dysmotility. Dictated by: Jojo Masters M.D. on 04/19/2024 at 17:03 Approved by: Jojo Masters M.D. on 04/19/2024 at 17:05
--- NOTE | 2024-04-19 12:01 | ST.SWALLOW ---
Visit Care Team Role Provider Type Alan Dixon MD Attending Provider Physician Primary Care Provider Referring Provider Specialty: Family Practice Address: [address] [place] [address], [address], [place], [address] Email: [email or web address] Modified Barium Swallow Study [employer] Modified Barium Swallow Study Start: 04/19/24 09:39 Freq: Status: Active Protocol: Document 04/19/24 09:39 LNK (Rec: 04/19/24 10:02 LNK [id number]) Modified Barium Swallow Study Total Time Visit Start Time 09:00 Visit Stop Time 09:30 Total Visit Minutes [address] Dixno Reason for Referral dysphagia Setting Setting Outpatient Care Patient Information Identification Type Name Patient History Pt was seen for a Modified Barium Swallow Study at the referral of Dr Dixon. Pt reported that she has been having pain when she swallows. She described the pain as occurring near the sternal notch and at mid chest. She also noted that it seems that, at times, the bolus moves slowly when clearing the esophagus. Large pills (i.e., supplements: calcium, zinc, etc) and firm fish have been most painful when swallowing. Small pills were reported to be easy to swallow. Pt denied any neurologic diagnoses, GERD and neck injury/surgery Subjective Observations Pt was seated in the fluoroscopy chair. Directions and procedures were described for her after which she indicated she understood and agreed to proceed. Patient Positioning Position View Lat-A/P Imaging Lateral View Textures Administered Trials Presented Thin Liquid via Spoon (IDDSI 0 ),Thin Liquid via Cup (IDDSI 0 ),Extremely Thick Liquid via Spoon (IDDSI 4),Regular (IDDSI 7) Barium Tablet Yes The IDDSI Framework Protocol: IDDSI.1 Oral Impairment Source: The Modified Barium Swallow Impairment Profile (MBSImP??) Lip Closure No labial escape Tongue Control During Bolus Hold Cohesive bolus between tongue to palatal seal Bolus Preparation/Mastication Timely & efficient chewing & mashing Bolus Transport/Lingual Motion Brisk tongue motion Oral Residue Complete oral clearance Initiation of Pharyngeal Swallow Bolus head at posterior laryngeal surface of epiglottis Additional Oral Impairment Observations -OME and DKS were observed to be WNL -Mastication noted with rotary chew pattern. -Good bolus formation, control and AP transition. Pharyngeal Impairment Source: The Modified Barium Swallow Impairment Profile (MBSImP??) Soft Palate Elevation No bolus between soft palate & pharyngeal wall Laryngeal Elevation Part.sup.move.thyroid cart/ part.approx.arytenoids to epiglot.petiole Anterior Hyoid Excursion Partial anterior movement Epiglottic Movement Complete inversion Laryngeal Vestibular Closure Complete; no air/contrast in laryngeal vestibule Pharyngeal Stripping Wave Present - complete Pharyngoesophageal Segment Opening Complete distention & complete duration; no obstruction of flow Tongue Base Retraction No contrast between tongue base & posterior pharyngeal wall Pharyngeal Residue Trace residue within/on pharyngeal structures Location Valleculae Additional Pharyngeal Impairment -Pharyngeal phase of pt's Observations swallow appeared to be WNL A/P View Textures Administered Trials Presented Thin Liquid via Cup (IDDSI 0), Regular (IDDSI 7) The IDDSI Framework Protocol: IDDSI.1 A/P View Observations Pharyngeal Contraction Complete Esophageal Clearance Upright Position Complete clearance; esophageal coating Vocal Fold Function Good Esophageal Function WFL,Slowed Clearing,Narrowing Additional A-P Observations -Solid and liquid trials were observed to clear the esophagus within timely manner . A small amount residual esophageal contrast remained, which was cleared with a liquid trial. Pt reported a sensation of solid trials being stuck. -The barium tablet was swallowed and stopped at narrowing near the GE junction . Pt noted a sensation of discomfort mid-chest at that point. Additional water cleared the pill into the stomach. The pt the reported the discomfort to be gone. -It was suggested that the pt increase fluid intake with meals (e.g., alternating solids/fluids) to aid the boluses in clearing the esophagus to the stomach. Clinical Impressions Dysphagia Type WNL Patient Appropriate for Therapy No Recommendations Diet Comments No diet change was recommended
== END ==
PROVIDERS: PCP Family Medicine; Referring Provider Family Medicine; Visit Provider Family Medicine
DX: R13.10 Dysphagia, unspecified (principal)
CPT/HCPCS: 74230; 92611

== ENCOUNTER → 2024-07-16 13:48 | Outpatient (CLI) | payer MEDICARE, OTHER, SELFPAY ==
[2020-11-22 20:03] VITALS: BMI 21.9
--- NOTE | 2024-07-16 13:49 | DI.ECHO.S_ITS ---
[facility] : : [id number] : [place] : : [id number] : : Phone: [phone] Echocardiogram Report + + :Name: ALTAGRACIA GOMEZ Study Date: 07/16/2024 Height: 61.5 in: :[facility] ReadingLocation: Weight: 120 lb : : Gender: Female BSA: 1.5 m2 : :: 1945 Age: 79 yrs BP: 137/93 mmHg: :Reason For Study: ASCENDING AORTIC DILATATION : :Ordering Physician: MAGGIE, : :TONY Giraldo Performed By: Rosa Hernandez : :Referring: TONY SERRANO : + + Interpretation Summary The ejection fraction is estimated to be 60-65%. There is mild mitral regurgitation. There is mild to moderate aortic regurgitation. There is mild tricuspid regurgitation. The right ventricular systolic pressure is estimated to be at least 22 mmHg based on an estimated right atrial pressure of 3 mm Hg. Procedure: A two-dimensional transthoracic echocardiogram with color flow and Doppler was performed. The study quality was technically adequate. Comparison is made with the echocardiogram of 06/07/2022. The patient was in sinus rhythm with heart rates between 62-77 bpm during the exam. Left Ventricle: The left ventricle is normal in size and wall thickness. The ejection fraction is estimated to be 60-65%. Left ventricular wall motion is normal. Right Ventricle: The right ventricle is normal size. Right ventricular systolic function is at the lower limits of normal. Atria: The left atrial size is normal. Right atrial size is normal. There is no Doppler evidence for an interatrial shunt. Mitral Valve: The mitral valve is normal in structure and function. There is mild mitral regurgitation. Aortic Valve: The aortic valve is trileaflet. The aortic valve opens well. There is no aortic valve stenosis. There is mild to moderate aortic regurgitation. Compared to the prior echo study, there has been an increase in the severity of aortic regurgitation. Tricuspid Valve: The tricuspid valve is normal in structure and function. There is mild tricuspid regurgitation. The right ventricular systolic pressure is estimated to be at least 22 mmHg based on an estimated right atrial pressure of 3 mm Hg. Pulmonic Valve: The pulmonic valve leaflets are thin and pliable; valve motion is normal. There is a trace or physiologic amount of pulmonic regurgitation. Great Vessels: The aortic root is normal size. The ascending aorta is mild- moderately enlarged. The IVC is of normal diameter and collapses greater than 50% with a sniff. This suggests a low right atrial pressure of 3 mm Hg. Pericardium/ Pleura There is no pericardial effusion. There is no pleural effusion. MMode/2D Measurements & Calculations LVIDd: 4.0 cm LVOT diam: 2.0 cm LVIDs: 2.8 cm Ao root diam: 3.7 cm FS: 29.9 % asc Aorta Diam: 4.0 cm EPSS: 0.48 cm Ao Arch Diam (Prox Trans): 2.9 cm IVSd: 0.90 cm LVPWd: 0.74 cm LV lopez. diameter/BSA (cm/m^2): 2.6 LV sys. diameter/BSA (cm/m^2): 1.8 LA A2 area: 16.1 cm2 RA long axis: 4.7 cm LA A4 area: 13.8 cm2 RA area: 14.4 cm2 LA length (vol): 4.6 cm RA vol: 37.5 ml LA vol: 41.2 ml RA : 24.5 ml/m2 LA vol index: 26.9 ml/m2 IVC diam: 1.1 cm RVD1 (basal): 2.5 cm TAPSE: 1.5 cm Doppler Measurements & Calculations Ao V2 max: 142.8 cm/sec AI P1/2t: 657.3 msec Ao V2 mean: 99.5 cm/sec AI dec slope: 177.2 cm/sec2 Ao max P.2 mmHg Ao mean P.3 mmHg Ao V2 VTI: 29.5 cm MV E max levar: 42.0 cm/sec TR max levar: 217.6 cm/sec MV A max levar: 58.3 cm/sec TR max P.9 mmHg MV E/A: 0.72 PA V2 max: 87.5 cm/sec Med Peak E' Levar: 4.5 cm/sec PA V2 mean: 62.1 cm/sec E/E' med: 9.3 PA mean P.7 mmHg Lat Peak E' Levar: 5.1 cm/sec PA pr(Accel): 43.0 mmHg E/E' lat: 8.2 E/e' average: 8.8 MV dec time: 0.21 sec Reading Physician:03:49 PM
== END ==
PROVIDERS: PCP Family Medicine; Referring Provider Physician Assistant; Visit Provider Physician Assistant
DX: I77.810 Thoracic aortic ectasia (principal); I08.3 Combined rheumatic disorders of mitral, aortic and tricuspid valves; I77.89 Other specified disorders of arteries and arterioles
CPT/HCPCS: 93306

== ENCOUNTER → 2025-04-18 17:43 | Outpatient (CLI) | payer MEDICARE, OTHER, SELFPAY ==
[2020-11-22 20:03] VITALS: BMI 21.9
--- NOTE | 2025-04-18 17:45 | DI.MG.S_ITS ---
MM screening mammo BI: 04/18/2025. BI-RADS: 1 CLINICAL: 79-year old female for bilateral screening mammogram. Tyrer-Cuzick lifetime risk of 4.1%. Current reported family history of breast cancer: mother. PRIOR EXAMS 02/28/2024, 11/14/2020, 10/08/2018, 03/06/2017. MAMMOGRAPHY TECHNIQUE: 2D and 3D (tomosynthesis) digital mammographic views obtained, with additional images as needed for full coverage. Current study was also evaluated with a Computer Aided Detection (CAD) system. DENSITY B. There are scattered areas of fibroglandular density. MAMMOGRAPHY FINDINGS Bilateral: No suspicious mass, asymmetry, microcalcification, or other abnormality seen. IMPRESSION: * No evidence of malignancy. RECOMMENDATIONS Bilateral * Annual screening mammography. OVERALL ASSESSMENT CATEGORY BI-RADS-1: Negative. The [employer] recommends annual screening mammography beginning at age 40 for women with average risk of breast cancer. ELECTRONICALLY SIGNED: Ashish Dalal M.D. on 04/19/2025 at 01:42:00 PM PT Interpreting Station ID: [id number]
== END ==
PROVIDERS: PCP Family Medicine; Referring Provider Family Medicine; Visit Provider Family Medicine
DX: Z12.31 Encounter for screening mammogram for malignant neoplasm of breast (principal); Z80.3 Family history of malignant neoplasm of breast
CPT/HCPCS: 77063; 77067

== ENCOUNTER → 2025-08-29 11:03 | Outpatient (CLI) | payer MEDICARE, OTHER, SELFPAY ==
[2020-11-22 20:03] VITALS: BMI 21.9
[2025-08-29 12:34] LABS: Appearance Urine UA CLEAR; Bilirubin Urine UA NEGATIVE (NEGATIVE); Color Urine UA YELLOW; Glucose Urine UA NEGATIVE (Negative); Ketones Urine UA NEGATIVE (NEGATIVE); Leukocyte Esterase Urine UA 1+ (NEGATIVE); Nitrite Urine UA NEGATIVE (Negative); Occult Blood Urine UA 2+ (Negative); Protein Urine UA NEGATIVE (Negative); Specific Gravity Urine UA 1.010 (1.000-1.035); Urobilinogen Urine UA 0.2 E.U./dL (0.2)
[2025-08-29 12:35] LABS: pH Urine UA 5.5 (4.5-8.0)
[2025-08-29 12:38] LABS: Culture Indicated Urine Specimen Cultured
== END ==
PROVIDERS: PCP Family Medicine; Referring Provider Family Medicine; Visit Provider Family Medicine
DX: R30.0 Dysuria (principal)
CPT/HCPCS: 36415; 81001; 87086